=== PATIENT | male | born 1950 ===

== ENCOUNTER 2018-09-08 20:09 | Emergency (ER) | payer MEDICARE, OTHER ==
[2018-09-08] MEDS ORDERED: KETOROLAC 30 MG/ML 1 ML VIAL IM STA (20:40)
[2018-09-08] MEDS ORDERED: DIAZEPAM 5 MG TAB PO STA (20:40)
--- NOTE | 2018-09-08 20:51 | ED ---
General Adult HPI - General Chief complaint: Neck Pain/Injury Stated complaint: Stiff neck Time Seen by Provider: 09/08/18 20:24 Source: patient, RN notes reviewed Mode of arrival: ambulatory Limitations: no limitations - History of Present Illness Initial comments: 68-year-old male with a past medical history of prostate cancer presents to the emergency department for a chief complaint of neck pain. Patient states this started last night while he was eating dinner. He states he notices sharp pain generalized across the back of his neck. Patient states he woke up this morning and was unable to move his neck. Patient states it is stuck twisted somewhat to the right. Patient states it is painful to turn his neck sideways or to look up or down. He denies any fevers. He denies any recent illnesses. He denies any headache associated with this neck pain. Denies any back pain.Patient has no other complaints at this time including shortness of breath, chest pain, abdominal pain, nausea or vomiting, headache, or visual changes. - Related Data Home Medications Medication Instructions Recorded Confirmed Doxazosin Mesylate [Cardura] 8 mg PO BID 09/08/18 09/08/18 Ibuprofen [Motrin Ib] 200 mg PO BID PRN 09/08/18 09/08/18 Previous Rx's Medication Instructions Recorded HYDROcodone/APAP 5-325MG [Java 1 tab PO Q6HR PRN #12 tab 09/09/18 5-325] Allergies Allergy/AdvReac Type Severity Reaction Status Date / Time No Known Allergies Allergy Verified 09/08/18 20:31 Review of Systems ROS Statement: Those systems with pertinent positive or pertinent negative responses have been documented in the HPI. ROS Other: All systems not noted in ROS Statement are negative. Past Medical History Past Medical History: No Reported History, Cancer Additional Past Medical History / Comment(s): prostate ca History of Any Multi-Drug Resistant Organisms: None Reported Past Surgical History: Appendectomy, Orthopedic Surgery Past Psychological History: No Psychological Hx Reported Smoking Status: Former smoker Past Alcohol Use History: None Reported Past Drug Use History: None Reported General Exam Limitations: no limitations General appearance: alert, in no apparent distress Head exam: Present: atraumatic, normocephalic, normal inspection Eye exam: Present: normal appearance, PERRL, EOMI. Absent: scleral icterus, conjunctival injection, periorbital swelling ENT exam: Present: normal exam, normal oropharynx, mucous membranes moist, TM's normal bilaterally, normal external ear exam Neck exam: Present: tenderness (3 minimal generalized tenderness over the posterior neck), other (patients neck held in slight rotation to the right, likely muscle spasm ). Absent: meningismus (Negative Kernig, negative Brudzinski,), full ROM, lymphadenopathy Respiratory exam: Present: normal lung sounds bilaterally. Absent: respiratory distress, wheezes, rales, rhonchi, stridor Cardiovascular Exam: Present: regular rate, normal rhythm, normal heart sounds. Absent: systolic murmur, diastolic murmur, rubs, gallop, clicks Course Vital Signs 09/08/18 09/08/18 20:13 22:42 Temperature 98.2 F 98.0 F Pulse Rate 74 74 Respiratory 22 18 Rate Blood Pressure 173/96 140/88 O2 Sat by Pulse 94 L 96 Oximetry Medical Decision Making - Medical Decision Making 68-year-old male presents to the emergency department for a chief complaint of neck pain. This started while eating dinner yesterday. Patient states the pain is across the back of his neck. States his neck is to the right and it is painful to move his neck from side to side or up to down. Patient states the pain comes and goes like spasms. On exam, patient has mild torticollis to the right noted with muscle spasm. No meningismus. Patient is afebrile. X-ray initially ordered which did show disc space narrowing and spondylosis at C5 to C6 C6 to C7. Patient initially feeling much better after Toradol and Valium given. However after patient went to push her back on spasms started again. Patient was given [address] was ordered after Dr. Oconnor also evaluated the patient. This also shows the narrowing with yoyn-rt-eujo contact in bilateral moderate to severe for aminal stenosis. Patient feeling much better after her feeding given. Patient will be given prescription for Java. Patient is to follow-up with Dr. Ballard outpatient. Patient will return here if he has any worsening symptoms Disposition Clinical Impression: Neck pain, Torticollis Disposition: HOME SELF-CARE Condition: Good Instructions (If sedation given, give patient instructions): Cervical Strain (ED) Additional Instructions: Please take motrin for pain. If pain is severe, take norco. Please follow-up with orthopedics in one to 2 days. Return here to the emergency department if he develops any worsening symptoms. Prescriptions: HYDROcodone/APAP 5-325MG [Java 5-325] 1 tab PO Q6HR PRN #12 tab PRN Reason: Pain Is patient prescribed a controlled substance at d/c from ED?: Yes When asked, does pt state using other controlled substances?: No If prescribed controlled substance>3 days was MAPS reviewed?: Prescribed <3 Days If opioid is for acute pain is fill amount 7 days or less?: Yes If Rx opioid, was Start Talking consent form obtained?: Yes Referrals: Julito Jo MD [Primary Care Provider] - 1-2 days Time of Disposition: 00:22
--- NOTE | 2018-09-08 21:37 | XR ---
EXAMINATION TYPE: XR cervical spine comp DATE OF EXAM: 09/08/2018 COMPARISON: NONE HISTORY: Neck pain TECHNIQUE: 6 views FINDINGS: The cervical vertebra have fairly normal alignment. Disc spaces are slightly narrowed in th e lower cervical spine. Neural foramina appear normal. Atlantoaxial facet joint is normal. There are no cervical ribs. IMPRESSION: Degenerative disc space narrowing and spondylosis at C5-6 C6-7. No fracture.
[2018-09-08] MEDS ORDERED: MORPHINE SULFATE 4 MG/ML SYRINGE IM STA (22:13)
[2018-09-08 22:44] VITALS: RESP 18
--- NOTE | 2018-09-09 00:07 | CT ---
History: ITS.REASON CT Reason: Pain Exam: CT C SPINE Without Contrast Technique more: CTDI is 16.9 mGy and DLP is 542.5 mGy-cm. Technique more: This CT exam was performed using one or more of the following dose reduction techniques: automated exposure control, adjustment of the mA and/or kV according to patient size, and/or use of iterative reconstruction technique. Comparison: None available FINDINGS: No fracture or malalignment. Disc space narrowing and uncovertebral hypertrophic change C5-6 with mild appearing left-sided foraminal stenosis. Disc space narrowing with zkvo-gn-ufob contact and uncovertebral hypertrophic change with bilateral moderate to severe appearing foraminal stenosis. No CT evidence of significant-appearing central stenosis. No prevertebral swelling. Bilateral partial mastoid fluid opacification. Mild mucoperiosteal thickening inferior visualized right maxillary sinus. Apices appear clear. IMPRESSION: No fracture or malalignment. Disc space narrowing and uncovertebral hypertrophic change C5-6 with mild appearing left-sided foraminal stenosis. Disc space narrowing with hdyv-yu-nymq contact and uncovertebral hypertrophic change with bilateral moderate to severe appearing foraminal stenosis. No CT evidence of significant-appearing central stenosis. Bilateral partial mastoid fluid opacification. Mild mucoperiosteal thickening inferior visualized right maxillary sinus.
[2018-09-09 00:43] VITALS: BP 141/92; PULSE 83; TEMP 97.8
== END 2018-09-09 00:43 | disposition home or self-care (01) ==
LOC: EC 20:09
DX: M43.6 Torticollis (principal); M48.02 Spinal stenosis, cervical region; M47.812 Spondylosis without myelopathy or radiculopathy, cervical region; Z87.891 Personal history of nicotine dependence; Z79.899 Other long term (current) drug therapy; Z85.46 Personal history of malignant neoplasm of prostate
CPT/HCPCS: 72050; 72125; 96372; 99284

== ENCOUNTER 2020-08-23 20:51 | Inpatient (IN) | payer MEDICARE ==
[2020-08-23] MEDS ORDERED: ACETAMINOPHEN TAB 325 MG TAB PO STA (21:06)
[2020-08-23 21:35] LABS: Basophils % (A) 0 %; Eosinophils % (A) 0 %; HCT 39.1 % (39.0-53.0); HGB 13.1 gm/dL (13.0-17.5); Lymphocytes # (A) 0.3 k/uL (1.0-4.8); Lymphocytes % (A) 6 %; MCH 29.4 pg (25.0-35.0); MCHC 33.5 g/dL (31.0-37.0); MCV 87.9 fL (80.0-100.0); Mean Platelet Volume 8.3; Monocytes # (A) 0.2 k/uL (0-1.0); Monocytes % (A) 3 %; Neutrophils % (A) 90 %; Platelet Count 183 k/uL (150-450); RBC 4.45 m/uL (4.30-5.90); RDW 13.1 % (11.5-15.5); WBC 5.6 k/uL (3.8-10.6)
[2020-08-23 21:52] LABS: Partial Thromboplastin Time 26.5 sec (22.0-30.0)
[2020-08-23 22:04] LABS: D-Dimer 0.73 mg/L FEU (<0.60)
--- NOTE | 2020-08-23 22:24 | XR ---
EXAMINATION TYPE: XR chest 1V portable DATE OF EXAM: 08/23/2020 COMPARISON: NONE HISTORY: Short of breath TECHNIQUE: Single view FINDINGS: There is some increased mild interstitial density in both lungs. There is no heart failure. Heart appears borderline enlarged. There is no pleural effusion. IMPRESSION: Interstitial mild fibrotic changes. No heart failure.
[2020-08-23 22:33] LABS: ALT 23 U/L (4-49); AST 47 U/L (17-59); African American GFR (CKD) >90 (>60 ml/min/1.73 sqM); Albumin 3.3 g/dL (3.5-5.0); Alkaline Phosphatase 69 U/L (38-126); Anion Gap 11 mmol/L; Blood Urea Nitrogen 21 mg/dL (9-20); C Reactive Protein 81.9 mg/L (<10.0); Calcium 8.2 mg/dL (8.4-10.2); Carbon Dioxide 19 mmol/L (22-30); Chloride 103 mmol/L (98-107); Glucose 123 mg/dL (74-99); LDH 1200 U/L (313-618); Magnesium 1.8 mg/dL (1.6-2.3); Non-African American GFR(CKD) 86 (>60 ml/min/1.73 sqM); Potassium 3.7 mmol/L (3.5-5.1); Sodium 133 mmol/L (137-145); Total Bilirubin 0.8 mg/dL (0.2-1.3); Total Protein 6.6 g/dL (6.3-8.2)
--- NOTE | 2020-08-23 23:07 | ED ---
SOB HPI - General Chief Complaint: Shortness of Breath Stated Complaint: ZOE Time Seen by Provider: 08/23/20 21:04 Source: patient, EMS Mode of arrival: EMS Limitations: no limitations - History of Present Illness Initial Comments: 70-year-old male who states he does not go to her doctor has no endorsed past medical history presenting to the ER today for chief complaint of "I know I have covid" x 2 weeks. Patient states he has had progressive worsening shortness of breath 2 weeks he states he has had cough body aches and changes of taste and smell. Patient states he has had occasional nausea he states that it feels uncomfortable to take a deep breath he denies any sharp pleuritic chest pain denies jaw or arm pain. Patient denies any vomiting or diarrhea. He denies any rashes sore throat or ear pain. Patient upon arrival appears to be short of breath he is on a nonrebreather he was 89% on room air upon EMS arrival. Patient was given 2 DuoNeb treatments as well as 125 of Solu-Medrol prior to arrival in the ER> - Related Data Home Medications Medication Instructions Recorded Confirmed Doxazosin Mesylate [Cardura] 8 mg PO DAILY 09/08/18 08/23/20 Allergies Allergy/AdvReac Type Severity Reaction Status Date / Time No Known Allergies Allergy Verified 08/23/20 22:21 Review of Systems ROS Statement: Those systems with pertinent positive or pertinent negative responses have been documented in the HPI. ROS Other: All systems not noted in ROS Statement are negative. Past Medical History Past Medical History: No Reported History, Cancer Additional Past Medical History / Comment(s): prostate ca History of Any Multi-Drug Resistant Organisms: None Reported Past Surgical History: Appendectomy, Orthopedic Surgery Past Psychological History: No Psychological Hx Reported Smoking Status: Never smoker Past Alcohol Use History: None Reported Past Drug Use History: None Reported General Exam - General Exam Comments Initial Comments: General: The patient is awake and alert, in no distress Eye: +3 mm pupils are equal, round and reactive to light, extra-ocular movements are intact. No nystagmus. There is normal conjunctiva bilaterally. No signs of icterus. Ears, nose, mouth and throat: There are moist mucous membranes and no oral lesions. Neck: The neck is supple, there is no tenderness or JVD. Cardiovascular: There is a regular rate and rhythm. No murmur, rub or gallop is appreciated. Respiratory: Respirations are non-labored, breath sounds are equal. No wheezes, stridor. Rhonchi with scattered rales Gastrointestinal: Soft, non-distended, non-tender abdomen without masses or organomegaly noted. There is no rebound or guarding present. Musculoskeletal: Normal ROM, no tenderness. Strength 5/5. Sensation intact. Radial and DP pulses equal bilaterally 2+. Neurological: A&O x 3. CN II-XII intact, There are no obvious motor or sensory deficits. Coordination appears grossly intact. Speech is normal. Skin: Skin is warm and dry and no rashes or lesions are noted. No LE edema or calf pain. Psychiatric: Cooperative, appropriate mood & affect, normal judgment. Limitations: no limitations Course Vital Signs 08/23/20 08/23/20 21:01 22:14 Temperature 102.9 F H Pulse Rate 99 90 Respiratory 28 H 24 Rate Blood Pressure 154/75 113/68 O2 Sat by Pulse 90 L 97 Oximetry Medical Decision Making - Medical Decision Making hypoxic 70 yo male presenting for cough, dyspnea. covid + with pna, no PE. Patient given decadron. is on non-rebreather will attempt to lower this as tolerated. patient EKG reviewed [facility] attending. patient will be admitted for monitoring, continuous pulse oximetry. Patient agreeable> Dr Burk agreeable to care plan. Amilcar Maria accepted admission fro [facility]. Sharris pulm on consult. - Lab Data Result diagrams: 08/23/20 21:28 08/23/20 21:28 Lab Results 08/23/20 08/23/20 08/23/20 Range/Units 21:28 21:28 21:28 WBC 5.6 (3.8-10.6) k/uL RBC 4.45 (4.30-5.90) m/uL Hgb 13.1 (13.0-17.5) gm/dL Hct 39.1 (39.0-53.0) % MCV 87.9 (80.0-100.0) fL MCH 29.4 (25.0-35.0) pg MCHC 33.5 (31.0-37.0) g/dL RDW 13.1 (11.5-15.5) % Plt Count 183 (150-450) k/uL MPV 8.3 Neutrophils % 90 % Lymphocytes % 6 % Monocytes % 3 % Eosinophils % 0 % Basophils % 0 % Neutrophils # 5.0 (1.3-7.7) k/uL Lymphocytes # 0.3 L (1.0-4.8) k/uL Monocytes # 0.2 (0-1.0) k/uL Eosinophils # 0.0 (0-0.7) k/uL Basophils # 0.0 (0-0.2) k/uL PT 11.0 (9.0-12.0) sec INR 1.0 (<1.2) APTT 26.5 (22.0-30.0) sec D-Dimer 0.73 H (<0.60) mg/L FEU Sodium 133 L (137-145) mmol/L Potassium 3.7 (3.5-5.1) mmol/L Chloride 103 (98-107) mmol/L Carbon Dioxide 19 L (22-30) mmol/L Anion Gap 11 mmol/L BUN 21 H (9-20) mg/dL Creatinine 0.91 (0.66-1.25) mg/dL Est GFR (CKD-EPI)AfAm >90 (>60 ml/min/1.73 sqM) Est GFR (CKD-EPI)NonAf 86 (>60 ml/min/1.73 sqM) Glucose 123 H (74-99) mg/dL Plasma Lactic Acid Deny (0.7-2.0) mmol/L Calcium 8.2 L (8.4-10.2) mg/dL Magnesium 1.8 (1.6-2.3) mg/dL Total Bilirubin 0.8 (0.2-1.3) mg/dL AST 47 (17-59) U/L ALT 23 (4-49) U/L Alkaline Phosphatase 69 (38-126) U/L Lactate Dehydrogenase 1200 H (313-618) U/L C-Reactive Protein 81.9 H (<10.0) mg/L Total Protein 6.6 (6.3-8.2) g/dL Albumin 3.3 L (3.5-5.0) g/dL Coronavirus (PCR) (Not Detectd) 08/23/20 08/23/20 Range/Units 21:28 22:18 WBC (3.8-10.6) k/uL RBC (4.30-5.90) m/uL Hgb (13.0-17.5) gm/dL Hct (39.0-53.0) % MCV (80.0-100.0) fL MCH (25.0-35.0) pg MCHC (31.0-37.0) g/dL RDW (11.5-15.5) % Plt Count (150-450) k/uL MPV Neutrophils % % Lymphocytes % % Monocytes % % Eosinophils % % Basophils % % Neutrophils # (1.3-7.7) k/uL Lymphocytes # (1.0-4.8) k/uL Monocytes # (0-1.0) k/uL Eosinophils # (0-0.7) k/uL Basophils # (0-0.2) k/uL PT (9.0-12.0) sec INR (<1.2) APTT (22.0-30.0) sec D-Dimer (<0.60) mg/L FEU Sodium (137-145) mmol/L Potassium (3.5-5.1) mmol/L Chloride (98-107) mmol/L Carbon Dioxide (22-30) mmol/L Anion Gap mmol/L BUN (9-20) mg/dL Creatinine (0.66-1.25) mg/dL Est GFR (CKD-EPI)AfAm (>60 ml/min/1.73 sqM) Est GFR (CKD-EPI)NonAf (>60 ml/min/1.73 sqM) Glucose (74-99) mg/dL Plasma Lactic Acid Deny 1.7 (0.7-2.0) mmol/L Calcium (8.4-10.2) mg/dL Magnesium (1.6-2.3) mg/dL Total Bilirubin (0.2-1.3) mg/dL AST (17-59) U/L ALT (4-49) U/L Alkaline Phosphatase (38-126) U/L Lactate Dehydrogenase (313-618) U/L C-Reactive Protein (<10.0) mg/L Total Protein (6.3-8.2) g/dL Albumin (3.5-5.0) g/dL Coronavirus (PCR) Detected A (Not Detectd) Disposition Clinical Impression: Dyspnea, Hypoxia, COVID-19, Pneumonia due to COVID-19 virus Disposition: ADMITTED IP TO THIS HOSP Condition: Stable Is patient prescribed a controlled substance at d/c from ED?: No Referrals: None,Stated [Primary Care Provider] - 1-2 days Time of Disposition: 23:25 Decision to Admit Reason: Admit from EC Decision Date: 08/23/20 Decision Time: 23:25
--- NOTE | 2020-08-23 23:21 | CT ---
EXAMINATION TYPE: CT chest angio for PE DATE OF EXAM: 08/23/2020 COMPARISON: None HISTORY: Dyspnea, elevated d-dimer. Pt on 15 L O2, stuggling to breath, not able to follow breathing instructions. CT DLP: 631.8 mGycm Automated exposure control for dose reduction was used. CONTRAST: Performed with IV Contrast, patient injected with 100 mL of Isovue 370. There are 3-D post processed images. There is coarse interstitial and airspace infiltrate in both lungs. There is patchy groundglass inter stitial infiltrate throughout both lungs. There are a few paratracheal lymph nodes that measure up to 1 cm. Thoracic aorta shows no aneurysm or dissection. The ascending aorta measures 3.8 cm. There are no hilar masses. I see no evidence of filling defect in the pulmonary arteries. There are no hilar m asses. There are a few bilateral bronchial lymph nodes measuring up to 1 cm. Thoracic spine is intact. Sternum is intact. IMPRESSION: Pulmonary extensive bilateral infiltrates consistent with pneumonia. No pleural fluid seen to suggest heart failure. No evidence of pulmonary embolism.
[2020-08-23] MEDS ORDERED: DEXAMETHASONE SOD PHOSPHATE 4 MG/ML 1 ML VIAL IV STA (23:23)
[2020-08-23] MEDS ORDERED: NALOXONE 0.4 MG/ML 1 ML VIAL IV PRN (23:23)
[2020-08-23] MEDS ORDERED: ACETAMINOPHEN TAB 325 MG TAB PO PRN (23:25)
[2020-08-24] MEDS: CHOLECALCIFEROL 25 MCG (1000 IU) TABLET PO SCH (08:48)
[2020-08-24] MEDS: ASCORBIC ACID 500 MG TAB PO SCH ×2 (08:48→20:52)
[2020-08-24] MEDS: ZINC SULFATE 220 MG CAP PO SCH (08:48)
[2020-08-24] MEDS: ENOXAPARIN 40 MG/0.4 ML SYRINGE SQ SCH (08:48)
[2020-08-24] MEDS: dexAMETHasone 2 MG TAB PO SCH (08:48)
--- NOTE | 2020-08-24 11:47 | P.CNPUL ---
History of Present Illness Consult date: 08/24/20 Requesting physician: Live Patton Reason for consult: dyspnea, cough, hypoxemia, pneumonia, abnormal CXR/CT Chief complaint: Fever, cough, shortness of breath. History of present illness: 70-year-old male, who does not see a doctor on a regular basis, who presents to the emergency room, via EMS. The patient hasn't felt well for 2-3 weeks at least. He's had progressive shortness of breath, cough, body aches, and changes of taste and smell. He also has occasional nausea, and he feels like it's hard to take a deep breath or when he takes a deep breath, it causes a sharp pain. He denied any vomiting or diarrhea. The patient short of breath on presentation to the emergency room. He was brought there by EMS. His saturations on a nonrebreather mask were only 89%. He did receive some breathing treatments on the way into the emergency room, and also IV Solu-Medrol. Currently, he is on 4 L nasal cannula. He is not receiving IV fluids. At this point, given the length of his symptoms, he is only a candidate for Decadron, vitamin C, vitamin D3, and zinc, and Lovenox. White count is 5.6, hemoglobin 13.1, hematocrit 39.1, and platelet count 183,000. PT 11, INR 1, PTT 26.5, and d-dimer is 0.73. Sodium 133, potassium 3.7, chlorides 103, CO2 19, anion gap 11, BUN 21, creatinine 0.91. LDH is 1200, C-reactive protein 81.9, and his pro-calcitonin level is 0.25. His COVID test by PCR was positive. Chest x-ray shows diffuse interstitial changes. CT angiogram was negative for pulmonary embolism, but did show extensive bilateral infiltrates, consistent with pneumonia. Review of Systems REVIEW OF SYSTEMS: CONSTITUTIONAL: Fever and chills, muscle aches, fatigue. NEUROLOGIC: [ Negative.] HEENT: [ Negative.] CARDIAC: [Negative.] PULMONARY: Shortness of breath, cough, chest congestion, and pleuritic chest pain with deep breathing or coughing. GI: [Negative.] : [Negative.] RHEUMATOLOGIC: [ Negative.] IMMUNOLOGIC: [ Negative.] ENDOCRINE: [Negative. ] DERMATOLOGIC: [Negative.] Past Medical History Past Medical History: No Reported History, Cancer Additional Past Medical History / Comment(s): prostate ca History of Any Multi-Drug Resistant Organisms: None Reported Past Surgical History: Appendectomy, Orthopedic Surgery Past Psychological History: No Psychological Hx Reported Smoking Status: Never smoker Past Alcohol Use History: None Reported Past Drug Use History: None Reported Medications and Allergies Home Medications Medication Instructions Recorded Confirmed Type Doxazosin Mesylate [Cardura] 8 mg PO DAILY 09/08/18 08/23/20 History Allergies Allergy/AdvReac Type Severity Reaction Status Date / Time No Known Allergies Allergy Verified 08/23/20 22:21 Physical Exam Osteopathic Statement: *. No significant issues noted on an osteopathic structural exam other than those noted in the History and Physical/Consult. Vitals: Vital Signs Temp Pulse Resp BP Pulse Ox 08/24/20 10:49 98.6 F 60 22 104/57 93 L 08/24/20 08:41 97 F L 60 20 110/69 93 L 08/24/20 04:00 56 L 22 105/62 95 08/24/20 00:30 100.5 F H 70 22 118/68 93 L 08/23/20 23:35 101.9 F H 80 22 123/76 98 08/23/20 22:14 90 24 113/68 97 08/23/20 21:01 102.9 F H 99 28 H 154/75 90 L Intake and Output 08/23/20 08/24/20 08/24/20 22:59 06:59 14:59 Other: Weight 104.326 kg No acute distress, oriented 3. Currently, patient on 4 L nasal cannula. No audible wheezing, use of accessory muscles, or conversational dyspnea. HEENT examination is grossly unremarkable. Mucous membranes are moist. No oral lesions. Neck supple. Full range of motion. No adenopathy thyromegaly or neck vein distention. Cardiovascular examination reveals regular rhythm rate. S1-S2 normal. No S3 or S4. No discernible murmur noted. Heart sounds are distant. Heart rate 60 bpm. Lungs reveal diffuse bilateral inspiratory and expiratory rhonchi. There are some basilar crackles. Breath sounds equal bilaterally. Abdomen soft bowel sounds are heard. No masses or tenderness. Extremities are intact. No cyanosis clubbing or edema. Skin is without rash or lesion. Neurologic examination is brief but nonfocal. Results - Laboratory Findings CBC and BMP: 08/23/20 21:28 08/23/20 21:28 PT/INR, D-dimer PT 11.0 sec (9.0-12.0) 08/23/20 21:28 INR 1.0 (<1.2) 08/23/20 21:28 D-Dimer 0.73 mg/L FEU (<0.60) H 08/23/20 21:28 Abnormal lab findings: Abnormal Labs 08/23/20 08/23/20 08/23/20 21:28 21:28 21:28 Lymphocytes # 0.3 L D-Dimer 0.73 H Sodium 133 L Carbon Dioxide 19 L BUN 21 H Glucose 123 H Calcium 8.2 L Lactate Dehydrogenase 1200 H C-Reactive Protein 81.9 H Albumin 3.3 L Procalcitonin Coronavirus (PCR) 08/23/20 08/23/20 21:28 22:18 Lymphocytes # D-Dimer Sodium Carbon Dioxide BUN Glucose Calcium Lactate Dehydrogenase C-Reactive Protein Albumin Procalcitonin 0.25 H Coronavirus (PCR) Detected A - Diagnostic Findings Chest x-ray: image reviewed CT scan - chest: image reviewed Assessment and Plan Assessment: Acute hypoxemic respiratory failure secondary to COVID 19 pneumonia. History of prostate cancer. Patient currently does not have a doctor and does not see a doctor on a regular basis. Plan: Plan dated 08/24/2020. The patient's only a candidate for oxygen therapy, Decadron, vitamin C, vitamin D3, zinc, and low molecular weight heparin. The patient is not a candidate for other therapies given the fact that his symptoms have been present for 2-3 weeks. The patient is very poor about seeing a medical doctor on a regular basis. When asked to his family doctor is, he states he does not have one. He apparently has not seen a doctor in years. We will continue to follow. X-rays and labs are reviewed. CAT scan is reviewed. Medications are reviewed. Time with Patient: Greater than 30
--- NOTE | 2020-08-24 13:01 | P.HPIM ---
History of Present Illness 70-year-old the male came in with complains of shortness of breath, body aches and the loss of sense of smell and taste. Denied any nausea vomiting diarrhea patient is bit hyponatremic patient is bit lightheaded as well and patient saturations were low presently on 4 L of oxygen was diagnosed with Covid 19 CT angiogram did not show any PE but infiltrates consistent with Covid. Patient's symptoms started about 2 weeks ago.. Review of Systems REVIEW OF SYSTEMS: CONSTITUTIONAL: No fever, no malaise, no fatigue. HEENT: No recent visual problems or hearing problems. Denied any sore throat. CARDIOVASCULAR: No chest pain, orthopnea, PND, no palpitations, no syncope. PULMONARY: no hemoptysis. GASTROINTESTINAL: No diarrhea, no nausea, no vomiting, no abdominal pain. NEUROLOGICAL: No headaches, no weakness, no numbness. HEMATOLOGICAL: Denies any bleeding or petechiae. GENITOURINARY: Denies any burning micturition, frequency, or urgency. MUSCULOSKELETAL/RHEUMATOLOGICAL: Denies any joint pain, swelling, or any muscle pain. ENDOCRINE: Denies any polyuria or polydipsia. The rest of the 14-point review of systems is negative. Past Medical History Past Medical History: No Reported History, Cancer Additional Past Medical History / Comment(s): prostate ca History of Any Multi-Drug Resistant Organisms: None Reported Past Surgical History: Appendectomy, Orthopedic Surgery Past Psychological History: No Psychological Hx Reported Smoking Status: Never smoker Past Alcohol Use History: None Reported Past Drug Use History: None Reported Medications and Allergies Home Medications Medication Instructions Recorded Confirmed Type Doxazosin Mesylate [Cardura] 8 mg PO DAILY 09/08/18 08/23/20 History Allergies Allergy/AdvReac Type Severity Reaction Status Date / Time No Known Allergies Allergy Verified 08/23/20 22:21 Physical Exam Vitals: Vital Signs Temp Pulse Resp BP Pulse Ox 08/24/20 10:49 98.6 F 60 22 104/57 93 L 08/24/20 08:41 97 F L 60 20 110/69 93 L 08/24/20 04:00 56 L 22 105/62 95 08/24/20 00:30 100.5 F H 70 22 118/68 93 L 08/23/20 23:35 101.9 F H 80 22 123/76 98 08/23/20 22:14 90 24 113/68 97 08/23/20 21:01 102.9 F H 99 28 H 154/75 90 L Intake and Output 08/23/20 08/24/20 08/24/20 22:59 06:59 14:59 Other: Weight 104.326 kg PHYSICAL EXAMINATION: GENERAL: The patient is alert and oriented x3, not in any acute distress. Obese HEENT: Pupils are round and equally reacting to light. EOMI. No scleral icterus. No conjunctival pallor. Normocephalic, atraumatic. No pharyngeal erythema. No thyromegaly. CARDIOVASCULAR: S1 and S2 present. No murmurs, rubs, or gallops. PULMONARY: Chest is clear to auscultation, no wheezing or crackles. ABDOMEN: Soft, nontender, nondistended, normoactive bowel sounds. No palpable organomegaly. MUSCULOSKELETAL: No joint swelling or deformity. EXTREMITIES: No cyanosis, clubbing, or pedal edema. NEUROLOGICAL: Gross neurological examination did not reveal any focal deficits. SKIN: No rashes. Results CBC & Chem 7: 08/23/20 21:28 08/23/20 21:28 Labs: Abnormal Lab Results - Last 24 Hours (Table) 08/23/20 08/23/20 08/23/20 Range/Units 21:28 21:28 21:28 Lymphocytes # 0.3 L (1.0-4.8) k/uL D-Dimer 0.73 H (<0.60) mg/L FEU Sodium 133 L (137-145) mmol/L Carbon Dioxide 19 L (22-30) mmol/L BUN 21 H (9-20) mg/dL Glucose 123 H (74-99) mg/dL Calcium 8.2 L (8.4-10.2) mg/dL Lactate Dehydrogenase 1200 H (313-618) U/L C-Reactive Protein 81.9 H (<10.0) mg/L Albumin 3.3 L (3.5-5.0) g/dL Procalcitonin (0.02-0.09) ng/mL Coronavirus (PCR) (Not Detectd) 08/23/20 08/23/20 Range/Units 21:28 22:18 Lymphocytes # (1.0-4.8) k/uL D-Dimer (<0.60) mg/L FEU Sodium (137-145) mmol/L Carbon Dioxide (22-30) mmol/L BUN (9-20) mg/dL Glucose (74-99) mg/dL Calcium (8.4-10.2) mg/dL Lactate Dehydrogenase (313-618) U/L C-Reactive Protein (<10.0) mg/L Albumin (3.5-5.0) g/dL Procalcitonin 0.25 H (0.02-0.09) ng/mL Coronavirus (PCR) Detected A (Not Detectd) Assessment and Plan Plan: -Acute hypoxic respiratory failure secondary to covid pneumonia. Patient will be continued on Decadron, Covid vitamins. -History of prostate cancer in remission -Obesity GI prophylaxis with Pepcid -DVT prophylaxis Lovenox
[2020-08-24] MEDS: DOXAZOSIN 4 MG TAB PO SCH (13:28)
[2020-08-24] MEDS: SODIUM CHLORIDE 0.9% 1,000 ML IV SCH (20:51)
[2020-08-24] MEDS: FAMOTIDINE 20 MG TAB PO SCH (20:52)
[2020-08-25] MEDS: SODIUM CHLORIDE 0.9% 1,000 ML IV SCH ×2 (00:23→08:54)
[2020-08-25 06:39] LABS: African American GFR (CKD) >90 (>60 ml/min/1.73 sqM); Anion Gap 4 mmol/L; Blood Urea Nitrogen 25 mg/dL (9-20); Calcium 8.1 mg/dL (8.4-10.2); Carbon Dioxide 25 mmol/L (22-30); Chloride 107 mmol/L (98-107); Glucose 131 mg/dL (74-99); Non-African American GFR(CKD) >90 (>60 ml/min/1.73 sqM); Potassium 4.3 mmol/L (3.5-5.1); Sodium 136 mmol/L (137-145)
[2020-08-25] MEDS: CHOLECALCIFEROL 25 MCG (1000 IU) TABLET PO SCH (08:54)
[2020-08-25] MEDS: ZINC SULFATE 220 MG CAP PO SCH (08:54)
[2020-08-25] MEDS: FAMOTIDINE 20 MG TAB PO SCH ×2 (08:54→21:02)
[2020-08-25] MEDS: ENOXAPARIN 40 MG/0.4 ML SYRINGE SQ SCH (08:54)
[2020-08-25] MEDS: dexAMETHasone 2 MG TAB PO SCH (08:54)
[2020-08-25] MEDS: ASCORBIC ACID 500 MG TAB PO SCH ×2 (08:54→21:02)
[2020-08-25] MEDS: DOXAZOSIN 4 MG TAB PO SCH (11:01)
--- NOTE | 2020-08-25 13:11 | XR ---
EXAMINATION TYPE: XR chest 1V portable DATE OF EXAM: 08/25/2020 CLINICAL HISTORY: Difficulty breathing progress study. Known Covid. TECHNIQUE: Single AP portable upright view of the chest is obtained. COMPARISON: Chest x-ray and CT chest from 2 days earlier FINDINGS: Worsening bilateral multifocal opacities. Persistent cardiomegaly. Osseous structures inta ct. IMPRESSION: Worsening bilateral multifocal opacities consistent with covid-19 infection progression
[2020-08-25 13:29] LABS: C Reactive Protein 50.9 mg/L (<10.0)
--- NOTE | 2020-08-25 16:14 | P.PN ---
Subjective Progress Note Date: 08/25/20 70-year-old the male came in with complains of shortness of breath, body aches and the loss of sense of smell and taste. Denied any nausea vomiting diarrhea patient is bit hyponatremic patient is bit lightheaded as well and patient saturations were low presently on 4 L of oxygen was diagnosed with Covid 19 CT angiogram did not show any PE but infiltrates consistent with Covid. Patient's symptoms started about 2 weeks ago.. 08/25/2020 Patient is seen and evaluated and follow-up and currently requiring oxygen via nonrebreather at 15 L. Patient continues to be extremely dyspneic with minimal exertion. Pulmonary is following. Patient is maintained on dexamethasone, Lovenox, and vitamin supplements and will continue. When talking with the patient he denies any worsening shortness of breath. D-dimer slightly improved at 0.64 today. Sodium is also improved at 136 and potassium is 4.3 and current creatinine is 0.8. Lactate dehydrogenase slightly elevated at 1586 and CRP trending down. We'll discontinue IV fluids and repeat labs. Review of systems: Constitutional: No reports of fatigue, fever, or chills Cardiovascular: No reports of chest pain or palpitations Respiratory:reports shortness of breath and cough GI: No reports of nausea, vomiting, or diarrhea : No reports of dysuria or retention Neurovascular: No reports of weakness or numbness All medications have been reviewed Objective - Vital Signs Vital signs: Vital Signs Temp 98.6 F 08/25/20 10:00 Pulse 69 08/25/20 10:00 Resp 20 08/25/20 10:00 BP 118/70 08/25/20 10:00 Pulse Ox 97 08/25/20 10:00 Intake & Output 08/24/20 08/25/20 08/25/20 18:59 06:59 18:59 Output Total 325 Balance -325 Weight 105.6 kg Output: Urine 325 - Exam GENERAL: The patient is alert and oriented x3, not in any acute distress. Obese HEENT: Pupils are round and equally reacting to light. EOMI. No scleral icterus. No conjunctival pallor. Normocephalic, atraumatic. No pharyngeal erythema. No thyromegaly. CARDIOVASCULAR: S1 and S2 present. No murmurs, rubs, or gallops. PULMONARY: Diminished breath sounds bilaterally with some scattered rhonchi noted ABDOMEN: Soft, nontender, nondistended, normoactive bowel sounds. No palpable organomegaly. MUSCULOSKELETAL: No joint swelling or deformity. EXTREMITIES: No cyanosis, clubbing, or pedal edema. NEUROLOGICAL: Gross neurological examination did not reveal any focal deficits. SKIN: No rashes. - Labs CBC & Chem 7: 08/23/20 21:28 08/25/20 06:00 Labs: Abnormal Lab Results - Last 24 Hours (Table) 08/25/20 08/25/20 08/25/20 Range/Units 06:00 13:00 13:00 D-Dimer 0.64 H (<0.60) mg/L FEU Sodium 136 L (137-145) mmol/L BUN 25 H (9-20) mg/dL Glucose 131 H (74-99) mg/dL Calcium 8.1 L (8.4-10.2) mg/dL Lactate Dehydrogenase 1586 H (313-618) U/L C-Reactive Protein 50.9 H (<10.0) mg/L Microbiology - Last 24 Hours (Table) 08/23/20 21:28 Blood Culture - Preliminary Blood No Growth after 24 hours Assessment and Plan Assessment: -Acute hypoxic respiratory failure secondary to covid pneumonia. Patient will be continued on Decadron, Covid vitamins. Currently requiring 15 L nonrebreather discussed with nursing staff about weaning FiO2 as tolerated -History of prostate cancer in remission -Obesity -GI prophylaxis with Pepcid -DVT prophylaxis Lovenox
--- NOTE | 2020-08-25 17:24 | P.PN ---
Subjective Progress Note Date: 08/25/20 Principal diagnosis: CoVID 19 pneumonia 70-year-old male, who does not see a doctor on a regular basis, who presents to the emergency room, via EMS. The patient hasn't felt well for 2-3 weeks at least. He's had progressive shortness of breath, cough, body aches, and changes of taste and smell. He also has occasional nausea, and he feels like it's hard to take a deep breath or when he takes a deep breath, it causes a sharp pain. He denied any vomiting or diarrhea. The patient short of breath on presentation to the emergency room. He was brought there by EMS. His saturations on a nonrebreather mask were only 89%. He did receive some breathing treatments on the way into the emergency room, and also IV Solu-Medrol. Currently, he is on 4 L nasal cannula. He is not receiving IV fluids. At this point, given the length of his symptoms, he is only a candidate for Decadron, vitamin C, vitamin D3, and zinc, and Lovenox. White count is 5.6, hemoglobin 13.1, hematocrit 39.1, and platelet count 183,000. PT 11, INR 1, PTT 26.5, and d-dimer is 0.73. Sodium 133, potassium 3.7, chlorides 103, CO2 19, anion gap 11, BUN 21, creatinine 0.91. LDH is 1200, C-reactive protein 81.9, and his pro-calcitonin level is 0.25. His COVID test by PCR was positive. Chest x-ray shows diffuse interstitial changes. CT angiogram was negative for pulmonary embolism, but did show extensive bilateral infiltrates, consistent with pneumonia. The patient is seen today 08/25/2020 in follow-up on the regular medical floor. He is currently sitting up at the bedside. Awake and alert in no acute distress. He is more short of breath today compared to yesterday. Increased cough and congestion. He has required increased oxygen support up to 15 L high flow nasal cannula and a partial rebreather mask to maintain O2 saturations in the 90s. He's been afebrile. Hemodynamically stable. Chest x-ray reveals worsening bilateral multifocal opacities consistent with CoVID 19 infection progression. D-dimer 0.64. LDH elevated at 1586. C-reactive protein 50.9. Sodium 136. Potassium 4.3. Creatinine 0.8. He remains on Lovenox, dexamethasone, vitamin supplements. Objective - Vital Signs Vital signs: Vital Signs Temp 98.9 F 08/25/20 14:00 Pulse 74 08/25/20 14:00 Resp 22 08/25/20 14:00 BP 118/62 08/25/20 14:00 Pulse Ox 97 08/25/20 14:00 Intake & Output 08/24/20 08/25/20 08/25/20 18:59 06:59 18:59 Intake Total 1200 Output Total 325 Balance -325 1200 Weight 105.6 kg Intake: Intake, IV Titration 1200 Amount Sodium Chloride 0.9% 1, 1200 000 ml @ 100 mls/hr IV . Q10H [facility] Rx#:[id number] Output: Urine 325 - Exam GENERAL EXAM: Alert, very pleasant 70-year-old gentleman, on 15 L high flow nasal cannula with nonrebreather mask, in mild respiratory distress. HEAD: Normocephalic. EYES: Normal reaction of pupils, equal size. NOSE: Clear with pink turbinates. THROAT: No erythema or exudates. NECK: No masses, no JVD. CHEST: No chest wall deformity. LUNGS: Equal air entry with bilateral coarse rhonchi, crackles in the posterior bases. CVS: S1 and S2 normal with no audible murmur, regular rhythm. ABDOMEN: No hepatosplenomegaly, normal bowel sounds, no guarding or rigidity. SPINE: No scoliosis or deformity SKIN: No rashes CENTRAL NERVOUS SYSTEM: No focal deficits, tone is normal in all 4 extremities. EXTREMITIES: There is no peripheral edema. No clubbing, no cyanosis. Per ipheral pulses are intact. - Labs CBC & Chem 7: 08/23/20 21:28 08/25/20 06:00 Labs: Abnormal Lab Results - Last 24 Hours (Table) 08/25/20 08/25/20 08/25/20 Range/Units 06:00 13:00 13:00 D-Dimer 0.64 H (<0.60) mg/L FEU Sodium 136 L (137-145) mmol/L BUN 25 H (9-20) mg/dL Glucose 131 H (74-99) mg/dL Calcium 8.1 L (8.4-10.2) mg/dL Lactate Dehydrogenase 1586 H (313-618) U/L C-Reactive Protein 50.9 H (<10.0) mg/L Microbiology - Last 24 Hours (Table) 08/23/20 21:28 Blood Culture - Preliminary Blood No Growth after 24 hours Assessment and Plan Assessment: 1 Acute hypoxemic respiratory failure secondary to acute CoVID 19 pneumonia, outside the window for Remdesivir 2 Elevated inflammatory markers secondary to above 3 History of prostate cancer Plan: The patient was seen and evaluated by Dr. Santacruz Chest x-ray showing progression of disease Elevated inflammatory markers Patient had significant increase in oxygen requirements We'll add tocilizumab Continue Lovenox, dexamethasone, vitamin supplements Monitors oxygen requirements closely We'll continue to follow and make further recommendations based on his clinical status I, the cosigning physician, performed a history & physical examination of the patient. Lungs sounds with bilateral coarse rhonchi, crackles in the bases.. Maintaining good O2 saturations in the 90s on 15 L high flow nasal cannula with partial rebreather mask. I discussed the assessment and plan of care with my nurse practitioner, Anamika Live. I attest to the above note as dictated by her.
[2020-08-25] MEDS ORDERED: TOCILIZUMAB 400 MG in SODIUM CHLORIDE 0.9% 80 ML IV ONE (18:00)
[2020-08-26] MEDS: ENOXAPARIN 40 MG/0.4 ML SYRINGE SQ SCH (09:18)
[2020-08-26] MEDS: dexAMETHasone 2 MG TAB PO SCH (09:19)
[2020-08-26] MEDS: CHOLECALCIFEROL 25 MCG (1000 IU) TABLET PO SCH (09:19)
[2020-08-26] MEDS: FAMOTIDINE 20 MG TAB PO SCH ×2 (09:19→20:17)
[2020-08-26] MEDS: DOXAZOSIN 4 MG TAB PO SCH (09:19)
[2020-08-26] MEDS: ASCORBIC ACID 500 MG TAB PO SCH ×2 (09:19→20:17)
[2020-08-26] MEDS: ZINC SULFATE 220 MG CAP PO SCH (09:22)
[2020-08-26 11:32] LABS: HCT 38.4 % (39.6-50.0); MCH 29.8 pg (27.0-32.0); MCHC 33.9 g/dL (32.0-37.0); MCV 88.1 fL (80.0-97.0); Platelet Count 293 X 10*3/uL (140-440); RBC 4.36 X 10*6/uL (4.40-5.60); RDW 13.9 % (11.5-14.5); WBC 9.45 X 10*3/uL (4.50-10.00)
[2020-08-26 11:57] LABS: Basophils # (A) 0.01 X 10*3/uL (0.00-0.10); Basophils % (A) 0.1 %; Eosinophils # (A) 0 X 10*3/uL (0.04-0.35); Eosinophils % (A) 0 %; Lymphocytes # (A) 0.46 X 10*3/uL (0.90-5.00); Lymphocytes % (A) 4.9 %; Monocytes # (A) 0.44 X 10*3/uL (0.20-1.00); Monocytes % (A) 4.7 %; Neutrophils # (A) 8.48 X 10*3/uL (1.80-7.70); Neutrophils % (A) 89.7 %
[2020-08-26 12:33] LABS: African American GFR (CKD) 106.4 (60.0-200.0); Anion Gap 6.1 mmol/L (4.00-12.00); BUN/Creat Ratio 31.25 Ratio (12.00-20.00); C Reactive Protein 3.9 mg/dL (0.0-0.8); Calcium 8.2 mg/dL (8.7-10.3); Carbon Dioxide 23.9 mmol/L (21.6-31.8); Non-African American GFR(CKD) 91.8 (60.0-200.0); Potassium 4.5 mmol/L (3.5-5.5)
--- NOTE | 2020-08-26 15:43 | P.PN ---
Subjective Progress Note Date: 08/26/20 Principal diagnosis: CoVID 19 pneumonia 70-year-old male, who does not see a doctor on a regular basis, who presents to the emergency room, via EMS. The patient hasn't felt well for 2-3 weeks at least. He's had progressive shortness of breath, cough, body aches, and changes of taste and smell. He also has occasional nausea, and he feels like it's hard to take a deep breath or when he takes a deep breath, it causes a sharp pain. He denied any vomiting or diarrhea. The patient short of breath on presentation to the emergency room. He was brought there by EMS. His saturations on a nonrebreather mask were only 89%. He did receive some breathing treatments on the way into the emergency room, and also IV Solu-Medrol. Currently, he is on 4 L nasal cannula. He is not receiving IV fluids. At this point, given the length of his symptoms, he is only a candidate for Decadron, vitamin C, vitamin D3, and zinc, and Lovenox. White count is 5.6, hemoglobin 13.1, hematocrit 39.1, and platelet count 183,000. PT 11, INR 1, PTT 26.5, and d-dimer is 0.73. Sodium 133, potassium 3.7, chlorides 103, CO2 19, anion gap 11, BUN 21, creatinine 0.91. LDH is 1200, C-reactive protein 81.9, and his pro-calcitonin level is 0.25. His COVID test by PCR was positive. Chest x-ray shows diffuse interstitial changes. CT angiogram was negative for pulmonary embolism, but did show extensive bilateral infiltrates, consistent with pneumonia. The patient is seen today 08/25/2020 in follow-up on the regular medical floor. He is currently sitting up at the bedside. Awake and alert in no acute distress. He is more short of breath today compared to yesterday. Increased cough and congestion. He has required increased oxygen support up to 15 L high flow nasal cannula and a partial rebreather mask to maintain O2 saturations in the 90s. He's been afebrile. Hemodynamically stable. Chest x-ray reveals worsening bilateral multifocal opacities consistent with CoVID 19 infection progression. D-dimer 0.64. LDH elevated at 1586. C-reactive protein 50.9. Sodium 136. Potassium 4.3. Creatinine 0.8. He remains on Lovenox, dexamethasone, vitamin supplements. The patient is seen today 08/26/2020 in follow-up on the regular medical floor. He is currently sitting up in a chair at the bedside. Awake and alert in no acute distress. He is still requiring partial rebreather mask to maintain O2 saturation in the high 80s low 90s. He is continued with a loose nonproductive cough. He did receive tocilizumab. He remains on Lovenox, dexamethasone, vitamin supplements. White count 9.4. Hemoglobin 13.0. Lymphocytes 0.4. D- dimer 0.80. Sodium 139. Potassium 4.5. Creatinine 0.8. LDH 500. C-reactive protein 3.9. Objective - Vital Signs Vital signs: Vital Signs Temp 97.7 F 08/26/20 08:38 Pulse 79 08/26/20 08:38 Resp 18 08/26/20 05:49 BP 108/58 08/26/20 08:38 Pulse Ox 92 L 08/26/20 08:38 Intake & Output 08/25/20 08/26/20 08/26/20 18:59 06:59 18:59 Intake Total 1200 Output Total 900 Balance 1200 -900 Intake: Intake, IV Titration 1200 Amount Sodium Chloride 0.9% 1, 1200 000 ml @ 100 mls/hr IV . Q10H REPLACED BY [facility] Rx#:[id number] Output: Urine 900 Other: Voiding Method Toilet Toilet - Exam GENERAL EXAM: Alert, very pleasant 70-year-old gentleman, on partial nonrebr eather mask, in mild respiratory distress. HEAD: Normocephalic. EYES: Normal reaction of pupils, equal size. NOSE: Clear with pink turbinates. THROAT: No erythema or exudates. NECK: No masses, no JVD. CHEST: No chest wall deformity. LUNGS: Equal air entry with bilateral coarse rhonchi, crackles in the posterior bases. CVS: S1 and S2 normal with no audible murmur, regular rhythm. ABDOMEN: No hepatosplenomegaly, normal bowel sounds, no guarding or rigidity. SPINE: No scoliosis or deformity SKIN: No rashes CENTRAL NERVOUS SYSTEM: No focal deficits, tone is normal in all 4 extremities. EXTREMITIES: There is no peripheral edema. No clubbing, no cyanosis. Peripheral pulses are intact. - Labs CBC & Chem 7: 08/26/20 07:22 08/26/20 07:22 Labs: Abnormal Lab Results - Last 24 Hours (Table) 08/26/20 08/26/20 08/26/20 Range/Units 07:22 07:22 07:22 RBC 4.36 L (4.40-5.60) X 10*6/uL Hct 38.4 L (39.6-50.0) % Immature Gran # 0.06 H (0.00-0.04) X 10*3/uL Neutrophils # 8.48 H (1.80-7.70) X 10*3/uL Lymphocytes # 0.46 L (0.90-5.00) X 10*3/uL Eosinophils # 0 L (0.04-0.35) X 10*3/uL D-Dimer 0.80 H (<0.60) mg/L FEU BUN/Creatinine Ratio 31.25 H (12.00-20.00) Ratio Glucose 125 H (70-110) mg/dL Calcium 8.2 L (8.7-10.3) mg/dL Lactate Dehydrogenase 500 H (120-246) U/L C-Reactive Protein 3.9 H (0.0-0.8) mg/dL Microbiology - Last 24 Hours (Table) 08/23/20 21:28 Blood Culture - Preliminary Blood No Growth after 48 hours Assessment and Plan Assessment: 1 Acute hypoxemic respiratory failure secondary to acute CoVID 19 pneumonia, outside the window for Remdesivir. Did receive tocilizumab. 2 Elevated inflammatory markers secondary to above 3 History of prostate cancer Plan: The patient was seen and evaluated by Dr. Santacruz He did receive tocilizumab Continue Lovenox, dexamethasone, vitamin supplements Monitors oxygen requirements closely Inflammatory markers improving We'll continue to follow I, the cosigning physician, performed a history & physical examination of the patient. Lungs sounds with bilateral coarse rhonchi, crackles in the bases.. Maintaining good O2 saturations in the 90s on partial nonrebreather mask. I discussed the assessment and plan of care with my nurse practitioner, Anamika Live. I attest to the above note as dictated by her.
--- NOTE | 2020-08-26 16:50 | P.PN ---
Subjective 70-year-old the male came in with complains of shortness of breath, body aches and the loss of sense of smell and taste. Denied any nausea vomiting diarrhea patient is bit hyponatremic patient is bit lightheaded as well and patient saturations were low presently on 4 L of oxygen was diagnosed with Covid 19 CT angiogram did not show any PE but infiltrates consistent with Covid. Patient's symptoms started about 2 weeks ago.. 08/25/2020 Patient is seen and evaluated and follow-up and currently requiring oxygen via nonrebreather at 15 L. Patient continues to be extremely dyspneic with minimal exertion. Pulmonary is following. Patient is maintained on dexamethasone, Lovenox, and vitamin supplements and will continue. When talking with the patient he denies any worsening shortness of breath. D-dimer slightly improved at 0.64 today. Sodium is also improved at 136 and potassium is 4.3 and current creatinine is 0.8. Lactate dehydrogenase slightly elevated at 1586 and CRP trending down. We'll discontinue IV fluids and repeat labs. 08/26/2020 and extend patient still remains on 15 L of oxygen although says is doing much better Review of systems: Constitutional: No reports of fatigue, fever, or chills Cardiovascular: No reports of chest pain or palpitations Respiratory:reports shortness of breath and cough GI: No reports of nausea, vomiting, or diarrhea : No reports of dysuria or retention Neurovascular: No reports of weakness or numbness All medications have been reviewed Objective - Vital Signs Vital signs: Vital Signs Temp 97.7 F 08/26/20 08:38 Pulse 79 08/26/20 08:38 Resp 18 08/26/20 05:49 BP 108/58 08/26/20 08:38 Pulse Ox 92 L 08/26/20 08:38 Intake & Output 08/25/20 08/26/20 08/26/20 18:59 06:59 18:59 Intake Total 1200 Output Total 900 Balance 1200 -900 Intake: Intake, IV Titration 1200 Amount Sodium Chloride 0.9% 1, 1200 000 ml @ 100 mls/hr IV . Q10H [facility] Rx#:[id number] Output: Urine 900 Other: Voiding Method Toilet Toilet - Exam PHYSICAL EXAMINATION: GENERAL: The patient is alert and oriented x3, not in any acute distress. Well developed, well nourished. HEENT: Pupils are round and equally reacting to light. EOMI. No scleral icterus. No conjunctival pallor. Normocephalic, atraumatic. No pharyngeal erythema. No thyromegaly. CARDIOVASCULAR: S1 and S2 present. No murmurs, rubs, or gallops. PULMONARY: Chest is clear to auscultation, no wheezing or crackles. ABDOMEN: Soft, nontender, nondistended, normoactive bowel sounds. No palpable organomegaly. MUSCULOSKELETAL: No joint swelling or deformity. EXTREMITIES: No cyanosis, clubbing, or pedal edema. NEUROLOGICAL: Gross neurological examination did not reveal any focal deficits. SKIN: No rashes. - Labs CBC & Chem 7: 08/26/20 07:22 08/26/20 07:22 Labs: Abnormal Lab Results - Last 24 Hours (Table) 08/26/20 08/26/20 08/26/20 Range/Units 07:22 07:22 07:22 RBC 4.36 L (4.40-5.60) X 10*6/uL Hct 38.4 L (39.6-50.0) % Immature Gran # 0.06 H (0.00-0.04) X 10*3/uL Neutrophils # 8.48 H (1.80-7.70) X 10*3/uL Lymphocytes # 0.46 L (0.90-5.00) X 10*3/uL Eosinophils # 0 L (0.04-0.35) X 10*3/uL D-Dimer 0.80 H (<0.60) mg/L FEU BUN/Creatinine Ratio 31.25 H (12.00-20.00) Ratio Glucose 125 H (70-110) mg/dL Calcium 8.2 L (8.7-10.3) mg/dL Lactate Dehydrogenase 500 H (120-246) U/L C-Reactive Protein 3.9 H (0.0-0.8) mg/dL Microbiology - Last 24 Hours (Table) 08/23/20 21:28 Blood Culture - Preliminary Blood No Growth after 48 hours Assessment and Plan Plan: -Acute hypoxic respiratory failure secondary to covid pneumonia. Patient will be continued on Decadron, Covid vitamins. Currently requiring 15 L nonrebreather discussed with nursing staff about weaning FiO2 as tolerated -History of prostate cancer in remission -Obesity -GI prophylaxis with Pepcid -DVT prophylaxis Lovenox
[2020-08-26 23:54] LABS: Ferritin 1618.4 ng/mL (22.0-322.0)
[2020-08-27 07:30] LABS: C Reactive Protein 26.1 mg/L (<10.0)
[2020-08-27] MEDS: ENOXAPARIN 40 MG/0.4 ML SYRINGE SQ SCH (08:17)
[2020-08-27] MEDS: dexAMETHasone 2 MG TAB PO SCH (08:17)
[2020-08-27] MEDS: ASCORBIC ACID 500 MG TAB PO SCH ×2 (08:17→20:21)
[2020-08-27] MEDS: DOXAZOSIN 4 MG TAB PO SCH (08:17)
[2020-08-27] MEDS: ZINC SULFATE 220 MG CAP PO SCH (08:17)
[2020-08-27] MEDS: FAMOTIDINE 20 MG TAB PO SCH ×2 (08:17→20:21)
[2020-08-27] MEDS: CHOLECALCIFEROL 25 MCG (1000 IU) TABLET PO SCH (08:18)
--- NOTE | 2020-08-27 10:56 | P.PN ---
Subjective 70-year-old the male came in with complains of shortness of breath, body aches and the loss of sense of smell and taste. Denied any nausea vomiting diarrhea patient is bit hyponatremic patient is bit lightheaded as well and patient saturations were low presently on 4 L of oxygen was diagnosed with Covid [address] angiogram did not show any PE but infiltrates consistent with Covid. Patient's symptoms started about 2 weeks ago.. 08/25/2020 Patient is seen and evaluated and follow-up and currently requiring oxygen via nonrebreather at 15 L. Patient continues to be extremely dyspneic with minimal exertion. Pulmonary is following. Patient is maintained on dexamethasone, Lovenox, and vitamin supplements and will continue. When talking with the patient he denies any worsening shortness of breath. D-dimer slightly improved at 0.64 today. Sodium is also improved at 136 and potassium is 4.3 and current creatinine is 0.8. Lactate dehydrogenase slightly elevated at 1586 and CRP trending down. We'll discontinue IV fluids and repeat labs. 08/26/2020 and extend patient still remains on 15 L of oxygen although says is doing much better 08/27/2020 Patient remains in 15 L of oxygen patient's LDH is 1242 compared to 500 yesterday C-reactive protein is still high at 26 improved since admission. Review of systems: Constitutional: No reports of fatigue, fever, or chills Cardiovascular: No reports of chest pain or palpitations Respiratory:reports shortness of breath and cough GI: No reports of nausea, vomiting, or diarrhea : No reports of dysuria or retention Neurovascular: No reports of weakness or numbness All medications have been reviewed Objective - Vital Signs Vital signs: Vital Signs Temp 97.5 F L 08/27/20 09:15 Pulse 62 08/27/20 09:15 Resp 18 08/27/20 09:15 BP 121/64 08/27/20 09:15 Pulse Ox 90 L 08/27/20 09:15 Intake & Output 08/26/20 08/27/20 08/27/20 18:59 06:59 18:59 Intake Total 1620 Balance 1620 Intake: Oral 1620 Other: Voiding Method Toilet Toilet Toilet # Voids 2 # Bowel Movements 0 - Exam PHYSICAL EXAMINATION: GENERAL: The patient is alert and oriented x3, not in any acute distress. Well developed, well nourished. HEENT: Pupils are round and equally reacting to light. EOMI. No scleral icterus. No conjunctival pallor. Normocephalic, atraumatic. No pharyngeal erythema. No thyromegaly. CARDIOVASCULAR: S1 and S2 present. No murmurs, rubs, or gallops. PULMONARY: Chest is clear to auscultation, no wheezing or crackles. ABDOMEN: Soft, nontender, nondistended, normoactive bowel sounds. No palpable organomegaly. MUSCULOSKELETAL: No joint swelling or deformity. EXTREMITIES: No cyanosis, clubbing, or pedal edema. NEUROLOGICAL: Gross neurological examination did not reveal any focal deficits. SKIN: No rashes. - Labs CBC & Chem 7: 08/26/20 07:22 08/26/20 07:22 Labs: Abnormal Lab Results - Last 24 Hours (Table) 08/23/20 08/26/20 08/26/20 Range/Units 21:28 07:22 07:22 RBC 4.36 L (4.40-5.60) X 10*6/uL Hct 38.4 L (39.6-50.0) % Immature Gran # 0.06 H (0.00-0.04) X 10*3/uL Neutrophils # 8.48 H (1.80-7.70) X 10*3/uL Lymphocytes # 0.46 L (0.90-5.00) X 10*3/uL Eosinophils # 0 L (0.04-0.35) X 10*3/uL D-Dimer (<0.60) mg/L FEU BUN/Creatinine Ratio 31.25 H (12.00-20.00) Ratio Glucose 125 H (70-110) mg/dL Calcium 8.2 L (8.7-10.3) mg/dL Ferritin 1618.4 H (22.0-322.0) ng/mL Lactate Dehydrogenase 500 H (120-246) U/L C-Reactive Protein 3.9 H (0.0-0.8) mg/dL 08/27/20 08/27/20 Range/Units 06:30 06:30 RBC (4.40-5.60) X 10*6/uL Hct (39.6-50.0) % Immature Gran # (0.00-0.04) X 10*3/uL Neutrophils # (1.80-7.70) X 10*3/uL Lymphocytes # (0.90-5.00) X 10*3/uL Eosinophils # (0.04-0.35) X 10*3/uL D-Dimer 1.19 H (<0.60) mg/L FEU BUN/Creatinine Ratio (12.00-20.00) Ratio Glucose (70-110) mg/dL Calcium (8.7-10.3) mg/dL Ferritin (22.0-322.0) ng/mL Lactate Dehydrogenase 1242 H (120-246) U/L C-Reactive Protein 26.1 H (0.0-0.8) mg/dL Microbiology - Last 24 Hours (Table) 08/23/20 21:28 Blood Culture - Preliminary Blood No Growth after 72 hours Assessment and Plan Plan: -Acute hypoxic respiratory failure secondary to covid pneumonia. Patient will be continued on Decadron, Covid vitamins. Currently requiring 15 L nonrebreather discussed with nursing staff about weaning FiO2 as tolerated -History of prostate cancer in remission -Obesity -GI prophylaxis with Pepcid -DVT prophylaxis Lovenox
--- NOTE | 2020-08-27 16:01 | P.PN ---
Subjective Progress Note Date: 08/27/20 Principal diagnosis: COVID 19 pneumonia. Shortness of breath. The patient is seen today 08/25/2020 in follow-up on the regular medical floor. He is currently sitting up at the bedside. Awake and alert in no acute distress. He is more short of breath today compared to yesterday. Increased cough and congestion. He has required increased oxygen support up to 15 L high flow nasal cannula and a partial rebreather mask to maintain O2 saturations in the 90s. He's been afebrile. Hemodynamically stable. Chest x-ray reveals worsening bilateral multifocal opacities consistent with CoVID 19 infection progression. D-dimer 0.64. LDH elevated at 1586. C-reactive protein 50.9. Sodium 136. Potassium 4.3. Creatinine 0.8. He remains on Lovenox, dexamethasone, vitamin supplements. The patient is seen today 08/26/2020 in follow-up on the regular medical floor. He is currently sitting up in a chair at the bedside. Awake and alert in no acute distress. He is still requiring partial rebreather mask to maintain O2 saturation in the high 80s low 90s. He is continued with a loose nonproductive cough. He did receive tocilizumab. He remains on Lovenox, dexamethasone, vitamin supplements. White count 9.4. Hemoglobin 13.0. Lymphocytes 0.4. D- dimer 0.80. Sodium 139. Potassium 4.5. Creatinine 0.8. LDH 500. C-reactive protein 3.9. Progress note dated 08/27/2020. 70-year-old male, who is again seen on the general medical floor. He is in room 472. The patient states that he's feeling a bit better today. The patient did receive usual medications including TOCI. Currently, the patient's on a 50% Venturi mask. Saturations are between 90 and 92%. He states that his breathing is improved. He does have a bit of a cough, which is mostly nonproductive. He denies any fever or chills. He denies any chest pain. He is afebrile. Temperature 97.4. Blood pressure is 120/71. Labs today include a d-dimer which is 1.19. LDH is 1242, and C-reactive protein is 26.1. Objective - Vital Signs Vital signs: Vital Signs Temp 97.4 F L 08/27/20 13:54 Pulse 55 L 08/27/20 13:54 Resp 17 08/27/20 13:54 BP 120/71 08/27/20 13:54 Pulse Ox 92 L 08/27/20 13:54 Intake & Output 08/26/20 08/27/20 08/27/20 18:59 06:59 18:59 Intake Total 1620 Balance 1620 Intake: Oral 1620 Other: Voiding Method Toilet Toilet Toilet # Voids 2 # Bowel Movements 0 - Exam No acute distress, oriented 3. The patient's using a 50% Venturi mask at this time. No conversational dyspnea. HEENT examination is grossly unremarkable. Mucous membranes are moist. No oral lesions. Neck supple. Full range of motion. No adenopathy thyromegaly or neck vein distention. Cardiovascular examination reveals regular rhythm rate. S1-S2 normal. No S3 or S4. No discernible murmur noted. Heart rate 55 bpm. Lungs reveal scattered bilateral rhonchi and crackles. Breath sounds are equal. There are no wheezes. Pulmonary examination is unchanged. Abdomen soft bowel sounds are heard. No masses or tenderness. Extremities are intact. No cyanosis clubbing or edema. Skin is without rash or lesion. Neurologic examination is brief but nonfocal. - Labs CBC & Chem 7: 08/26/20 07:22 08/26/20 07:22 Labs: Abnormal Lab Results - Last 24 Hours (Table) 08/23/20 08/27/20 08/27/20 Range/Units 21:28 06:30 06:30 D-Dimer 1.19 H (<0.60) mg/L FEU Ferritin 1618.4 H (22.0-322.0) ng/mL Lactate Dehydrogenase 1242 H (313-618) U/L C-Reactive Protein 26.1 H (<10.0) mg/L Microbiology - Last 24 Hours (Table) 08/23/20 21:28 Blood Culture - Preliminary Blood No Growth after 72 hours Assessment and Plan Assessment: Acute hypoxemic respiratory failure secondary to COVID 19 pneumonia. Status post TOCI. History of prostate cancer. Patient currently does not have a doctor and does not see a doctor on a regular basis. Plan: Plan dated 08/27/2020. The patient seemed to be doing a lot better. He has been weaned down to 50% Venturi mask. He remains on Decadron, vitamin C, vitamin D3, zinc, and low molecular weight heparin. He did receive TOCI. His oxygen requirements have come down. He is clinically feeling better. X-rays, labs, medications are all reviewed. Both he and his are in the hospital. We will continue to follow make recommendations were appropriate. Time with Patient: Less than 30
--- NOTE | 2020-08-28 07:32 | XR ---
EXAMINATION TYPE: XR chest 1V portable DATE OF EXAM: 08/28/2020 HISTORY: Shortness of breath. COMPARISON: 08/25/20 TECHNIQUE: Single view of the chest is submitted. FINDINGS: Demonstrated are scattered senescent parenchymal change. Peripheral airspace infiltrates seen bilaterally demonstrate interval improvement. The heart is stable. Hilar and mediastinal structures are within normal limits. Degenerative changes are seen of the dorsal spine. IMPRESSION: 1. Peripheral airspace infiltrates seen bilaterally demonstrate interval improvement.
[2020-08-28] MEDS: ENOXAPARIN 40 MG/0.4 ML SYRINGE SQ SCH (08:39)
[2020-08-28] MEDS: dexAMETHasone 2 MG TAB PO SCH (08:39)
[2020-08-28] MEDS: FAMOTIDINE 20 MG TAB PO SCH ×2 (08:40→19:23)
[2020-08-28] MEDS: CHOLECALCIFEROL 25 MCG (1000 IU) TABLET PO SCH (08:40)
[2020-08-28] MEDS: ZINC SULFATE 220 MG CAP PO SCH (08:40)
[2020-08-28] MEDS: ASCORBIC ACID 500 MG TAB PO SCH ×2 (08:40→19:23)
[2020-08-28] MEDS: DOXAZOSIN 4 MG TAB PO SCH (08:40)
--- NOTE | 2020-08-28 13:09 | P.PN ---
Subjective Progress Note Date: 08/28/20 COVID 19 pneumonia. Shortness of breath. The patient is seen today 08/25/2020 in follow-up on the regular medical floor. He is currently sitting up at the bedside. Awake and alert in no acute distress. He is more short of breath today compared to yesterday. Increased cough and congestion. He has required increased oxygen support up to 15 L high flow nasal cannula and a partial rebreather mask to maintain O2 saturations in the 90s. He's been afebrile. Hemodynamically stable. Chest x-ray reveals worsening bilateral multifocal opacities consistent with CoVID 19 infection progression. D-dimer 0.64. LDH elevated at 1586. C-reactive protein 50.9. Sodium 136. Potassium 4.3. Creatinine 0.8. He remains on Lovenox, dexamethasone, vitamin supplements. The patient is seen today 08/26/2020 in follow-up on the regular medical floor. He is currently sitting up in a chair at the bedside. Awake and alert in no acute distress. He is still requiring partial rebreather mask to maintain O2 saturation in the high 80s low 90s. He is continued with a loose nonproductive cough. He did receive tocilizumab. He remains on Lovenox, dexamethasone, vitamin supplements. White count 9.4. Hemoglobin 13.0. Lymphocytes 0.4. D- dimer 0.80. Sodium 139. Potassium 4.5. Creatinine 0.8. LDH 500. C-reactive protein 3.9. Progress note dated 08/27/2020. 70-year-old male, who is again seen on the general medical floor. He is in room 472. The patient states that he's feeling a bit better today. The patient did receive usual medications including TOCI. Currently, the patient's on a 50% Deny turi mask. Saturations are between 90 and 92%. He states that his breathing is improved. He does have a bit of a cough, which is mostly nonproductive. He denies any fever or chills. He denies any chest pain. He is afebrile. Temperature 97.4. Blood pressure is 120/71. Labs today include a d-dimer which is 1.19. LDH is 1242, and C-reactive protein is 26.1. On 08/28/2020 the patient is being seen for a follow-up, and the patient is an acute hypoxic respiratory failure secondary to Covid 19 related pneumonia. The patient received a combination of Decadron, multivitamins and Tocilizumab, and the patient has been weaned down to 50% Venturi mask. The patient is afebrile. No cervical respiratory distress. Bilateral multifocal pulmonary opacities consistent with Covid 19 related pneumonia and this is based on the chest x-rays was on 08/25/2020. Inflammatory markers showed a rise of the LDH of 1242 from yesterday with a CRP of 26. The patient remains on Decadron 6 mg by mouth da artie. The patient is also on Lovenox 40 mg subcu for DVT prophylaxis. Clinically the patient is improving. He is currently on a 40% Ventimask. His chest x-rays also showing significant improvement in the perihilar pulmonary infiltrates described earlier than this is based on today's chest x-ray. Inflammatory markers have not been done today. He is coughing some mucus. His pro-calcitonin level at the time of admission was 0.25. He is on no antibiotics for now. Objective - Vital Signs Vital signs: Vital Signs Temp 97.5 F L 08/28/20 10:04 Pulse 65 08/28/20 10:04 Resp 18 08/28/20 10:04 BP 126/81 08/28/20 10:04 Pulse Ox 91 L 08/28/20 10:04 Intake & Output 08/27/20 08/28/20 08/28/20 18:59 06:59 18:59 Output Total 500 Balance -500 Output: Urine 500 Other: Voiding Method Toilet Toilet Toilet # Voids 2 # Bowel Movements 1 - Exam No acute distress, oriented 3. The patient's using a 50% Venturi mask at this time. No conversational dyspnea. HEENT examination is grossly unremarkable. Mucous membranes are moist. No oral lesions. Neck supple. Full range of motion. No adenopathy thyromegaly or neck vein distention. Cardiovascular examination reveals regular rhythm rate. S1-S2 normal. No S3 or S4. No discernible murmur noted. Heart rate 55 bpm. Lungs reveal scattered bilateral rhonchi and crackles. Breath sounds are equal. There are no wheezes. Pulmonary examination is unchanged. Abdomen soft bowel sounds are heard. No masses or tenderness. Extremities are intact. No cyanosis clubbing or edema. Skin is without rash or lesion. Neurologic examination is brief but nonfocal. - Labs CBC & Chem 7: 08/26/20 07:22 08/26/20 07:22 Labs: Abnormal Lab Results - Last 24 Hours (Table) 08/28/20 Range/Units 05:36 D-Dimer 2.45 H (<0.60) mg/L FEU Microbiology - Last 24 Hours (Table) 08/23/20 21:28 Blood Culture - Preliminary Blood No Growth after 96 hours Assessment and Plan Plan: 1 Acute hypoxemic respiratory failure secondary to acute CoVID 19 pneumonia, outside the window for Remdesivir. Did receive tocilizumab, the patient is currently on Decadron for severe hypoxic respiratory failure and currently is in a 50% Ventimask. The patient is able to maintain a pulse ox above 90%. Last chest x-ray from 08/25/2020 showed progression of bilateral pulmonary infiltrates. X-ray from today shows marked improvement in the pulmonary infiltrates that were noted earlier especially the ones in the perihilar area and the lower lobe. 2 Elevated inflammatory markers secondary to above, LDH level remains elevated, erythematous and markers were not measured from today. The numbers from yesterday was noted. I noted fluctuation in the LDH level. 3 History of prostate cancer Plan Check sputum Gram stain and culture, and the pro-calcitonin level was low Repeat chest x-ray in the morning The patient has been weaned down to 40% Ventimask Titrate FiO2 as tolerated and maintain a saturation above 90% Continue Lovenox, dexamethasone, vitamin supplements Monitors oxygen requirements closely Inflammatory markers improving We'll continue to follow
[2020-08-28 13:19] LABS: C Reactive Protein 1.3 mg/dL (0.0-0.8)
--- NOTE | 2020-08-28 16:18 | P.PN ---
Subjective Progress Note Date: 08/28/20 70-year-old the male came in with complains of shortness of breath, body aches and the loss of sense of smell and taste. Denied any nausea vomiting diarrhea patient is bit hyponatremic patient is bit lightheaded as well and patient saturations were low presently on 4 L of oxygen was diagnosed with Covid 19 CT angiogram did not show any PE but infiltrates consistent with Covid. Patient's symptoms started about 2 weeks ago.. 08/25/2020 Patient is seen and evaluated and follow-up and currently requiring oxygen via nonrebreather at 15 L. Patient continues to be extremely dyspneic with minimal exertion. Pulmonary is following. Patient is maintained on dexamethasone, Lovenox, and vitamin supplements and will continue. When talking with the patient he denies any worsening shortness of breath. D-dimer slightly improved at 0.64 today. Sodium is also improved at 136 and potassium is 4.3 and current creatinine is 0.8. Lactate dehydrogenase slightly elevated at 1586 and CRP trending down. We'll discontinue IV fluids and repeat labs. 08/26/2020 patient still remains on 15 L of oxygen although says is doing much better 08/27/2020 Patient remains in 15 L of oxygen patient's LDH is 1242 compared to 500 yesterday C-reactive protein is still high at 26 improved since admission. 08/28/2020 Patient is seen this morning continues to be on venti-mask and continues to be dyspneic with minimal exertion. D-dimer continues to go up and is currently 2.45. Pulmonary following. Lactate dehydrogenase trending down and 498 from 1242 yesterday and CRP is down at 1.3 compared to 26.1 yesterday. Patient remains afebrile. Chest x-ray shows continued peripheral airspace infiltrates bilaterally and demonstrates interval improvement from previous. Will repeat a.m. chest x-ray. Review of systems: Constitutional: No reports of fatigue, fever, or chills Cardiovascular: No reports of chest pain or palpitations Respiratory:reports shortness of breath and cough GI: No reports of nausea, vomiting, or diarrhea : No reports of dysuria or retention Neurovascular: No reports of weakness or numbness All medications have been reviewed Objective - Vital Signs Vital signs: Vital Signs Temp 97.5 F L 08/28/20 10:04 Pulse 65 08/28/20 10:04 Resp 18 08/28/20 10:04 BP 126/81 08/28/20 10:04 Pulse Ox 91 L 08/28/20 10:04 Intake & Output 08/27/20 08/28/20 08/28/20 18:59 06:59 18:59 Output Total 500 Balance -500 Output: Urine 500 Other: Voiding Method Toilet Toilet Toilet # Voids 2 # Bowel Movements 1 - Exam GENERAL: The patient is alert and oriented x3, not in any acute distress. Obese HEENT: Pupils are round and equally reacting to light. EOMI. No scleral icterus. No conjunctival pallor. Normocephalic, atraumatic. No pharyngeal erythema. No thyromegaly. CARDIOVASCULAR: S1 and S2 present. No murmurs, rubs, or gallops. PULMONARY: Diminished breath sounds bilaterally with some scattered rhonchi noted ABDOMEN: Soft, nontender, nondistended, normoactive bowel sounds. No palpable organomegaly. MUSCULOSKELETAL: No joint swelling or deformity. EXTREMITIES: No cyanosis, clubbing, or pedal edema. NEUROLOGICAL: Gross neurological examination did not reveal any focal deficits. SKIN: No rashes. - Labs CBC & Chem 7: 08/26/20 07:22 08/26/20 07:22 Labs: Abnormal Lab Results - Last 24 Hours (Table) 08/28/20 Range/Units 05:36 D-Dimer 2.45 H (<0.60) mg/L FEU Microbiology - Last 24 Hours (Table) 08/23/20 21:28 Blood Culture - Preliminary Blood No Growth after 96 hours Assessment and Plan Assessment: -Acute hypoxic respiratory failure secondary to covid pneumonia. Patient will be continued on Decadron, Covid vitamins. Currently on venti-mask discussed with nursing staff about weaning FiO2 as tolerated -History of prostate cancer in remission -Obesity -GI prophylaxis with Pepcid -DVT prophylaxis Lovenox Plan: Continue with current medications. Continue to wean FiO2 as tolerated. Patient is presently on a Venti-mask and repeat chest x-ray today shows some improvement. Will repeat a.m. chest x-ray. D-dimer is trending up along with inflammatory markers slowly trending down. Pulmonary following. Will repeat inflammatory markers along with a.m. labs and continue to monitor closely. Further recommendations to follow depending on the clinical course of the patient. Prognosis is guarded.
[2020-08-29] MEDS: ENOXAPARIN 40 MG/0.4 ML SYRINGE SQ SCH (08:22)
[2020-08-29] MEDS: ASCORBIC ACID 500 MG TAB PO SCH ×2 (08:23→19:40)
[2020-08-29] MEDS: DOXAZOSIN 4 MG TAB PO SCH (08:23)
[2020-08-29] MEDS: CHOLECALCIFEROL 25 MCG (1000 IU) TABLET PO SCH (08:23)
[2020-08-29] MEDS: dexAMETHasone 2 MG TAB PO SCH (08:23)
[2020-08-29] MEDS: FAMOTIDINE 20 MG TAB PO SCH ×2 (08:23→19:40)
[2020-08-29] MEDS: ZINC SULFATE 220 MG CAP PO SCH (08:23)
--- NOTE | 2020-08-29 09:49 | XR ---
EXAMINATION TYPE: XR chest 1V portable DATE OF EXAM: 08/29/2020 COMPARISON: Chest x-ray 08/28/2020 HISTORY: Covid, shortness of breath TECHNIQUE: Single frontal view of the chest is obtained. FINDINGS: A lateral airspace disease persists. Cardiac mediastinal silhouette shows a similar appear ance. No pneumothorax or pleural effusion. There are overlying leads. IMPRESSION: Findings consistent with pneumonia
[2020-08-29 11:46] LABS: HCT 39.1 % (39.6-50.0); MCH 29.3 pg (27.0-32.0); MCHC 33.2 g/dL (32.0-37.0); MCV 88.1 fL (80.0-97.0); Mean Platelet Volume 11.6 fL (9.5-12.2); Platelet Count 356 X 10*3/uL (140-440); RBC 4.44 X 10*6/uL (4.40-5.60); RDW 13.4 % (11.5-14.5); WBC 11.56 X 10*3/uL (4.50-10.00)
[2020-08-29 12:11] LABS: African American GFR (CKD) 106.4 (60.0-200.0); Anion Gap 9.6 mmol/L (4.00-12.00); BUN/Creat Ratio 27.5 Ratio (12.00-20.00); Calcium 8.4 mg/dL (8.7-10.3); Carbon Dioxide 23.4 mmol/L (21.6-31.8); Non-African American GFR(CKD) 91.8 (60.0-200.0); Potassium 4.6 mmol/L (3.5-5.5)
--- NOTE | 2020-08-29 13:09 | P.PN ---
Subjective Progress Note Date: 08/29/20 The patient is seen today 08/25/2020 in follow-up on the regular medical floor. He is currently sitting up at the bedside. Awake and alert in no acute distress. He is more short of breath today compared to yesterday. Increased cough and congestion. He has required increased oxygen support up to 15 L high flow nasal cannula and a partial rebreather mask to maintain O2 saturations in the 90s. He's been afebrile. Hemodynamically stable. Chest x-ray reveals worsening bilateral multifocal opacities consistent with CoVID 19 infection progression. D-dimer 0.64. LDH elevated at 1586. C-reactive protein 50.9. Sodium 136. Potassium 4.3. Creatinine 0.8. He remains on Lovenox, dexamethasone, vitamin supplements. The patient is seen today 08/26/2020 in follow-up on the regular medical floor. He is currently sitting up in a chair at the bedside. Awake and alert in no acute distress. He is still requiring partial rebreather mask to maintain O2 saturation in the high 80s low 90s. He is continued with a loose nonproductive cough. He did receive tocilizumab. He remains on Lovenox, dexamethasone, vitamin supplements. White count 9.4. Hemoglobin 13.0. Lymphocytes 0.4. D- dimer 0.80. Sodium 139. Potassium 4.5. Creatinine 0.8. LDH 500. C-reactive protein 3.9. Progress note dated 08/27/2020. 70-year-old male, who is again seen on the general medical floor. He is in room 472. The patient states that he's feeling a bit better today. The patient did receive usual medications including TOCI. Currently, the patient's on a 50% Venturi mask. Saturations are between 90 and 92%. He states that his breathing is improved. He does have a bit of a cough, which is mostly nonproductive. He denies any fever or chills. He denies any chest pain. He is afebrile. Temperature 97.4. Blood pressure is 120/71. Labs today include a d-dimer which is 1.19. LDH is 1242, and C-reactive protein is 26.1. On 08/28/2020 the patient is being seen for a follow-up, and the patient is an acute hypoxic respiratory failure secondary to Covid 19 related pneumonia. The patient received a combination of Decadron, multivitamins and Tocilizumab, and the patient has been weaned down to 50% Venturi mask. The patient is afebrile. No cervical respiratory distress. Bilateral multifocal pulmonary opacities consistent with Covid 19 related pneumonia and this is based on the chest x-rays was on 08/25/2020. Inflammatory markers showed a rise of the LDH of 1242 from yesterday with a CRP of 26. The patient remains on Decadron 6 mg by mouth daily. The patient is also on Lovenox 40 mg subcu for DVT prophylaxis. Clinically the patient is improving. He is currently on a 40% Ventimask. His chest x-rays also showing significant improvement in the perihilar pulmonary infiltrates described earlier than this is based on today's chest x-ray. Inflammatory markers have not been done today. He is coughing some mucus. His pro-calcitonin level at the time of admission was 0.25. He is on no antibiotics for now. On 08/29/2020 the patient is being seen in follow-up regarding Covid 19 related pneumonia with respiratory failure. The patient remains on a 50% Venturi mask. Unfortunately is now much progress. Was attempted to wean down his FiO2 yesterday and he fell because of desaturation. He received a combination of Decadron, and Toci . The patient currently remains on Decadron 6 mg by mouth daily. Is on Lovenox 40 mg by mouth daily. His blood work and inflammatory mar kers show a d-dimer up to 3.86, is elevated from yesterday was 498 with a CRP of 1.3. Rest of the blood work and electrolytes are all within normal limits. They, the patient is feeling better and he seems to be less short of breath. We'll try again to switch him to a nasal cannula. Objective - Vital Signs Vital signs: Vital Signs Temp 97.4 F L 08/29/20 10:00 Pulse 60 08/29/20 10:00 Resp 19 08/29/20 10:00 BP 112/71 08/29/20 10:00 Pulse Ox 90 L 08/29/20 10:00 Intake & Output 08/28/20 08/29/20 08/29/20 18:59 06:59 18:59 Other: Voiding Method Toilet Toilet # Voids 2 1 - Exam No acute distress, oriented 3. The patient's using a 50% Venturi mask at this time. No conversational dyspnea. HEENT examination is grossly unremarkable. Mucous membranes are moist. No oral lesions. Neck supple. Full range of motion. No adenopathy thyromegaly or neck vein distention. Cardiovascular examination reveals regular rhythm rate. S1-S2 normal. No S3 or S4. No discernible murmur noted. Heart rate 55 bpm. Lungs reveal scattered bilateral rhonchi and crackles. Breath sounds are equal. There are no wheezes. Pulmonary examination is unchanged. Abdomen soft bowel sounds are heard. No masses or tenderness. Extremities are intact. No cyanosis clubbing or edema. Skin is without rash or lesion. Neurologic examination is brief but nonfocal. - Labs CBC & Chem 7: 08/29/20 06:38 08/29/20 06:38 Labs: Abnormal Lab Results - Last 24 Hours (Table) 08/28/20 08/29/20 08/29/20 Range/Units 05:36 06:38 06:38 WBC 11.56 H (4.50-10.00) X 10*3/uL Hct 39.1 L (39.6-50.0) % Absolute Nucleated RBC 0.02 H (0.00-0.00) X 10*3/uL NRBC/100 WBC Diff 0.2 H (0.0-0.0) /100 WBCS D-Dimer 3.86 H (<0.60) mg/L FEU BUN/Creatinine Ratio (12.00-20.00) Ratio Calcium (8.7-10.3) mg/dL Lactate Dehydrogenase 498 H (120-246) U/L C-Reactive Protein 1.3 H (0.0-0.8) mg/dL 08/29/20 Range/Units 06:38 WBC (4.50-10.00) X 10*3/uL Hct (39.6-50.0) % Absolute Nucleated RBC (0.00-0.00) X 10*3/uL NRBC/100 WBC Diff (0.0-0.0) /100 WBCS D-Dimer (<0.60) mg/L FEU BUN/Creatinine Ratio 27.50 H (12.00-20.00) Ratio Calcium 8.4 L (8.7-10.3) mg/dL Lactate Dehydrogenase (120-246) U/L C-Reactive Protein (0.0-0.8) mg/dL Microbiology - Last 24 Hours (Table) 08/23/20 21:28 Blood Culture - Preliminary Blood No Growth after 120 hours Assessment and Plan Plan: 1 Acute hypoxemic respiratory failure secondary to acute CoVID 19 pneumonia, outside the window for Remdesivir. Did receive tocilizumab, the patient is currently on Decadron for severe hypoxic respiratory failure and currently is in a 50% Ventimask. The patient is able to maintain a pulse ox above 90%. Last chest x-ray from 08/25/2020 showed progression of bilateral pulmonary infiltrates. X-ray from today shows marked improvement in the pulmonary infiltrates that were noted earlier especially the ones in the perihilar area and the lower lobe. 2 Elevated inflammatory markers secondary to above, LDH level remains elevated, erythematous and markers were not measured from today. The numbers from yesterday was noted. I noted fluctuation in the LDH level. 3 History of prostate cancer Plan Check sputum Gram stain and culture and the results are still pending for now, and the pro-calcitonin level was low Repeat chest x-ray in the morning and repeat the inflammatory markers in the morning Try high flow nasal cannula again Titrate FiO2 as tolerated and maintain a saturation above 90% Continue Lovenox, dexamethasone, vitamin supplements Monitors oxygen requirements closely Inflammatory markers improving We'll continue to follow
[2020-08-29 13:22] LABS: Basophils # (M) 0 X 10*3/uL (0.00-0.10); Eosinophils # (M) 0.12 X 10*3/uL (0.04-0.35); Lymphocytes # (M) 0.35 X 10*3/uL (0.90-5.00); Metamyelocytes % 1 % (0-0); Monocytes # (M) 0.23 X 10*3/uL (0.20-1.00); Myelocytes % 3 % (0-0); Neutrophils % (M) 90 %
--- NOTE | 2020-08-29 13:30 | P.PN ---
Subjective Progress Note Date: 08/29/20 70-year-old the male came in with complains of shortness of breath, body aches and the loss of sense of smell and taste. Denied any nausea vomiting diarrhea patient is bit hyponatremic patient is bit lightheaded as well and patient saturations were low presently on 4 L of oxygen was diagnosed with Covid [address] angiogram did not show any PE but infiltrates consistent with Covid. Patient's symptoms started about 2 weeks ago.. 08/25/2020 Patient is seen and evaluated and follow-up and currently requiring oxygen via nonrebreather at 15 L. Patient continues to be extremely dyspneic with minimal exertion. Pulmonary is following. Patient is maintained on dexamethasone, Lovenox, and vitamin supplements and will continue. When talking with the patient he denies any worsening shortness of breath. D-dimer slightly improved at 0.64 today. Sodium is also improved at 136 and potassium is 4.3 and current creatinine is 0.8. Lactate dehydrogenase slightly elevated at 1586 and CRP trending down. We'll discontinue IV fluids and repeat labs. 08/26/2020 patient still remains on 15 L of oxygen although says is doing much better 08/27/2020 Patient remains in 15 L of oxygen patient's LDH is 1242 compared to 500 yesterday C-reactive protein is still high at 26 improved since admission. 08/28/2020 Patient is seen this morning continues to be on venti-mask and continues to be dyspneic with minimal exertion. D-dimer continues to go up and is currently 2.45. Pulmonary following. Lactate dehydrogenase trending down and 498 from 1242 yesterday and CRP is down at 1.3 compared to 26.1 yesterday. Patient remains afebrile. Chest x-ray shows continued peripheral airspace infiltrates bilaterally and demonstrates interval improvement from previous. Will repeat a.m. chest x-ray. 08/29/2020 Patient is seen and evaluated in follow-up this morning continues to be on a Ventimask and states he had some difficulty with increased shortness of breath with minimal exertion this morning although states he feels a little better since then. Pulmonary is following. Discussed with nursing staff and patient about weaning FiO2 as tolerated and will attempt nasal cannula again. Chest x- ray today shows bilateral airspace disease persists with no pneumothorax or pleural effusion noted and consistent with pneumonia. A sputum culture was sent for analysis and pending. Patient is afebrile. Blood count slightly elevated at 11.56 and hemoglobin is stable at 13.0. D-dimer continues to elevate and is currently 3.86. BMP within normal limits with a sodium of 135, potassium is 4.6, current creatinine is 0.8. Will continue to monitor closely and instructed the patient increase activity as tolerated and will repeat a.m. labs along with inflammatory markers. Patient is continued on Lovenox along with dexamethasone and vitamin C and D and zinc supplements. Review of systems: Constitutional: No reports of fatigue, fever, or chills Cardiovascular: No reports of chest pain or palpitations Respiratory:reports reports continued shortness of breath and cough with phlegm production GI: No reports of nausea, vomiting, or diarrhea : No reports of dysuria or retention Neurovascular: No reports of weakness or numbness All medications have been reviewed Objective - Vital Signs Vital signs: Vital Signs Temp 97.4 F L 08/29/20 10:00 Pulse 60 08/29/20 10:00 Resp 19 08/29/20 10:00 BP 112/71 08/29/20 10:00 Pulse Ox 90 L 08/29/20 10:00 Intake & Output 08/28/20 08/29/20 08/29/20 18:59 06:59 18:59 Other: Voiding Method Toilet Toilet # Voids 2 1 - Exam GENERAL: The patient is alert and oriented x3, not in any acute distress. Obese HEENT: Pupils are round and equally reacting to light. EOMI. No scleral icterus. No conjunctival pallor. Normocephalic, atraumatic. No pharyngeal erythema. No thyromegaly. CARDIOVASCULAR: S1 and S2 present. No murmurs, rubs, or gallops. PULMONARY: Diminished breath sounds bilaterally with some scattered rhonchi noted ABDOMEN: Soft, nontender, nondistended, normoactive bowel sounds. No palpable organomegaly. MUSCULOSKELETAL: No joint swelling or deformity. EXTREMITIES: No cyanosis, clubbing, or pedal edema. NEUROLOGICAL: Gross neurological examination did not reveal any focal deficits. SKIN: No rashes. - Labs CBC & Chem 7: 08/29/20 06:38 08/29/20 06:38 Labs: Abnormal Lab Results - Last 24 Hours (Table) 08/28/20 08/29/20 08/29/20 Range/Units 05:36 06:38 06:38 WBC 11.56 H (4.50-10.00) X 10*3/uL Hct 39.1 L (39.6-50.0) % Absolute Nucleated RBC 0.02 H (0.00-0.00) X 10*3/uL NRBC/100 WBC Diff 0.2 H (0.0-0.0) /100 WBCS D-Dimer 3.86 H (<0.60) mg/L FEU BUN/Creatinine Ratio (12.00-20.00) Ratio Calcium (8.7-10.3) mg/dL Lactate Dehydrogenase 498 H (120-246) U/L C-Reactive Protein 1.3 H (0.0-0.8) mg/dL 08/29/20 Range/Units 06:38 WBC (4.50-10.00) X 10*3/uL Hct (39.6-50.0) % Absolute Nucleated RBC (0.00-0.00) X 10*3/uL NRBC/100 WBC Diff (0.0-0.0) /100 WBCS D-Dimer (<0.60) mg/L FEU BUN/Creatinine Ratio 27.50 H (12.00-20.00) Ratio Calcium 8.4 L (8.7-10.3) mg/dL Lactate Dehydrogenase (120-246) U/L C-Reactive Protein (0.0-0.8) mg/dL Microbiology - Last 24 Hours (Table) 08/23/20 21:28 Blood Culture - Preliminary Blood No Growth after 120 hours Assessment and Plan Assessment: -Acute hypoxic respiratory failure secondary to covid pneumonia. Patient will be continued on Decadron, Lovenox, zinc, and vitamin supplementation. Currently on venti-mask discussed with nursing staff about weaning FiO2 as tolerated. We'll attempt nasal cannula again today. -History of prostate cancer in remission -Obesity -GI prophylaxis with Pepcid -DVT prophylaxis Lovenox Plan: Continue with current medications. Continue to wean FiO2 as tolerated. Patient is presently on a Venti-mask and repeat chest x-ray today shows continued pneum onia. Sputum culture sent and pending. Will repeat a.m. chest x-ray. D-dimer is trending up along with inflammatory markers slowly trending down. Pulmonary following. Will repeat inflammatory markers along with a.m. labs and continue to monitor closely. Discussed with the patient along with nursing staff about weaning FiO2 and increasing activity and sitting up in the chair out of the bed. Further recommendations to follow depending on the clinical course of the patient. Prognosis is guarded.
[2020-08-29 14:55] VITALS: BMI 34.3
[2020-08-29] MEDS: MAGNESIUM HYDROXIDE 2,400 MG/10 ML CUP PO PRN (18:06)
[2020-08-30] MEDS: ZINC SULFATE 220 MG CAP PO SCH (07:14)
[2020-08-30] MEDS: dexAMETHasone 2 MG TAB PO SCH (07:14)
[2020-08-30] MEDS: CHOLECALCIFEROL 25 MCG (1000 IU) TABLET PO SCH (07:15)
[2020-08-30] MEDS: FAMOTIDINE 20 MG TAB PO SCH ×2 (07:15→19:51)
[2020-08-30] MEDS: ASCORBIC ACID 500 MG TAB PO SCH ×2 (07:15→19:51)
[2020-08-30] MEDS: DOXAZOSIN 4 MG TAB PO SCH (07:17)
[2020-08-30] MEDS: ENOXAPARIN 40 MG/0.4 ML SYRINGE SQ SCH (07:17)
[2020-08-30 09:39] LABS: C Reactive Protein 0.4 mg/dL (0.0-0.8)
--- NOTE | 2020-08-30 12:32 | P.PN ---
Subjective Progress Note Date: 08/30/20 70-year-old the male came in with complains of shortness of breath, body aches and the loss of sense of smell and taste. Denied any nausea vomiting diarrhea patient is bit hyponatremic patient is bit lightheaded as well and patient saturations were low presently on 4 L of oxygen was diagnosed with Covid [address] angiogram did not show any PE but infiltrates consistent with Covid. Patient's symptoms started about 2 weeks ago.. 08/25/2020 Patient is seen and evaluated and follow-up and currently requiring oxygen via nonrebreather at 15 L. Patient continues to be extremely dyspneic with minimal exertion. Pulmonary is following. Patient is maintained on dexamethasone, Lovenox, and vitamin supplements and will continue. When talking with the patient he denies any worsening shortness of breath. D-dimer slightly improved at 0.64 today. Sodium is also improved at 136 and potassium is 4.3 and current creatinine is 0.8. Lactate dehydrogenase slightly elevated at 1586 and CRP trending down. We'll discontinue IV fluids and repeat labs. 08/26/2020 patient still remains on 15 L of oxygen although says is doing much better 08/27/2020 Patient remains in 15 L of oxygen patient's LDH is 1242 compared to 500 yesterday C-reactive protein is still high at 26 improved since admission. 08/28/2020 Patient is seen this morning continues to be on venti-mask and continues to be dyspneic with minimal exertion. D-dimer continues to go up and is currently 2.45. Pulmonary following. Lactate dehydrogenase trending down and 498 from 1242 yesterday and CRP is down at 1.3 compared to 26.1 yesterday. Patient remains afebrile. Chest x-ray shows continued peripheral airspace infiltrates bilaterally and demonstrates interval improvement from previous. Will repeat a.m. chest x-ray. 08/29/2020 Patient is seen and evaluated in follow-up this morning continues to be on a Ventimask and states he had some difficulty with increased shortness of breath with minimal exertion this morning although states he feels a little better since then. Pulmonary is following. Discussed with nursing staff and patient about weaning FiO2 as tolerated and will attempt nasal cannula again. Chest x- ray today shows bilateral airspace disease persists with no pneumothorax or pleural effusion noted and consistent with pneumonia. A sputum culture was sent for analysis and pending. Patient is afebrile. Blood count slightly elevated at 11.56 and hemoglobin is stable at 13.0. D-dimer continues to elevate and is currently 3.86. BMP within normal limits with a sodium of 135, potassium is 4.6, current creatinine is 0.8. Will continue to monitor closely and instructed the patient increase activity as tolerated and will repeat a.m. labs along with inflammatory markers. Patient is continued on Lovenox along with dexamethasone and vitamin C and D and zinc supplements. 08/30/2020 Patient is seen this morning with no acute overnight issues. Patient is currently maintained on 5 L of oxygen via nasal cannula and nursing staff working on titrating as tolerated. Patient was 90% on 5 L via nasal cannula. Patient states he's feeling much better today and once again encouraged him to increase activity and sit up in the chair more often and continue with incentive spirometer which will be ordered. Shirin is following and patient is maintained on dexamethasone along with Lovenox and vitamin and zinc supplements and will continue. D-dimer continues to be elevated and is currently 5.64, lactate deh ydrogenase slightly up at 521 and CRP is normal at 0.4. Sputum culture received and results pending. Will continue to monitor closely. Review of systems: Constitutional: No reports of fatigue, fever, or chills Cardiovascular: No reports of chest pain or palpitations Respiratory:reports reports continued shortness of breath and cough with increased phlegm production GI: No reports of nausea, vomiting, or diarrhea : No reports of dysuria or retention Neurovascular: No reports of weakness or numbness All medications have been reviewed Objective - Vital Signs Vital signs: Vital Signs Temp 97.7 F 08/30/20 05:50 Pulse 57 L 08/30/20 05:50 Resp 19 08/30/20 05:50 BP 122/81 08/30/20 05:50 Pulse Ox 91 L 08/30/20 05:50 Intake & Output 08/29/20 08/30/20 08/30/20 18:59 06:59 18:59 Intake Total 600 Balance 600 Weight 105.6 kg Intake: Oral 600 Other: Voiding Method Toilet # Voids 4 0 # Bowel Movements 1 - Exam GENERAL: The patient is alert and oriented x3, not in any acute distress. Obese HEENT: Pupils are round and equally reacting to light. EOMI. No scleral icterus. No conjunctival pallor. Normocephalic, atraumatic. No pharyngeal erythema. No thyromegaly. CARDIOVASCULAR: S1 and S2 present. No murmurs, rubs, or gallops. PULMONARY: Diminished breath sounds bilaterally with some scattered rhonchi noted ABDOMEN: Soft, nontender, nondistended, normoactive bowel sounds. No palpable organomegaly. MUSCULOSKELETAL: No joint swelling or deformity. EXTREMITIES: No cyanosis, clubbing, or pedal edema. NEUROLOGICAL: Gross neurological examination did not reveal any focal deficits. SKIN: No rashes. - Labs CBC & Chem 7: 08/29/20 06:38 08/29/20 06:38 Labs: Abnormal Lab Results - Last 24 Hours (Table) 08/29/20 08/29/20 08/30/20 Range/Units 06:38 06:38 06:15 WBC 11.56 H (4.50-10.00) X 10*3/uL Hct 39.1 L (39.6-50.0) % Absolute Nucleated RBC 0.02 H (0.00-0.00) X 10*3/uL Metamyelocytes % 1 H (0-0) % Myelocytes % 3 H (0-0) % Neutrophils # (Manual) 10.40 H (2.00-8.90) X 10*3/uL Lymphocytes # (Manual) 0.35 L (0.90-5.00) X 10*3/uL NRBC/100 WBC Diff 0.2 H (0.0-0.0) /100 WBCS D-Dimer 5.64 H (<0.60) mg/L FEU BUN/Creatinine Ratio 27.50 H (12.00-20.00) Ratio Calcium 8.4 L (8.7-10.3) mg/dL Microbiology - Last 24 Hours (Table) 08/29/20 11:00 Gram Stain - Preliminary Sputum Sputum Culture - Preliminary 08/23/20 21:28 Blood Culture - Final Blood No Growth after 144 hours Assessment and Plan Assessment: -Acute hypoxic respiratory failure secondary to covid pneumonia. Patient will be continued on Decadron, Lovenox, zinc, and vitamin supplementation. Currently on 6 L via nasal cannula and discussed with nursing staff about weaning FiO2 as tolerated. Currently on 5 L at 90% oxygen saturation -History of prostate cancer in remission -Obesity -GI prophylaxis with Pepcid -DVT prophylaxis Lovenox Plan: Continue with current medications. Continue to wean FiO2 as tolerated. Patient is presently on nasal cannula at 5-6 L. Sputum culture sent. Will repeat a.m. chest x-ray. D-dimer is trending up along with inflammatory markers slowly trending down. Pulmonary following. Discussed with the patient along with nursing staff about weaning FiO2 and increasing activity and sitting up in the chair out of the bed. Further recommendations to follow depending on the clinical course of the patient. Patient may require home oxygen secondary to Covid 19 pneumonia upon discharge. Prognosis is guarded.
--- NOTE | 2020-08-30 15:24 | P.PN ---
Subjective Progress Note Date: 08/30/20 The patient is seen today 08/25/2020 in follow-up on the regular medical floor. He is currently sitting up at the bedside. Awake and alert in no acute distress. He is more short of breath today compared to yesterday. Increased cough and congestion. He has required increased oxygen support up to 15 L high flow nasal cannula and a partial rebreather mask to maintain O2 saturations in the 90s. He's been afebrile. Hemodynamically stable. Chest x-ray reveals worsening bilateral multifocal opacities consistent with CoVID 19 infection progression. D-dimer 0.64. LDH elevated at 1586. C-reactive protein 50.9. Sodium 136. Potassium 4.3. Creatinine 0.8. He remains on Lovenox, dexamethasone, vitamin supplements. The patient is seen today 08/26/2020 in follow-up on the regular medical floor. He is currently sitting up in a chair at the bedside. Awake and alert in no acute distress. He is still requiring partial rebreather mask to maintain O2 saturation in the high 80s low 90s. He is continued with a loose nonproductive cough. He did receive tocilizumab. He remains on Lovenox, dexamethasone, vitamin supplements. White count 9.4. Hemoglobin 13.0. Lymphocytes 0.4. D- dimer 0.80. Sodium 139. Potassium 4.5. Creatinine 0.8. LDH 500. C-reactive protein 3.9. Progress note dated 08/27/2020. 70-year-old male, who is again seen on the general medical floor. He is in room 472. The patient states that he's feeling a bit better today. The patient did receive usual medications including TOCI. Currently, the patient's on a 50% Venturi mask. Saturations are between 90 and 92%. He states that his breathing is improved. He does have a bit of a cough, which is mostly nonproductive. He denies any fever or chills. He denies any chest pain. He is afebrile. Temperature 97.4. Blood pressure is 120/71. Labs today include a d-dimer which is 1.19. LDH is 1242, and C-reactive protein is 26.1. On 08/28/2020 the patient is being seen for a follow-up, and the patient is an acute hypoxic respiratory failure secondary to Covid 19 related pneumonia. The patient received a combination of Decadron, multivitamins and Tocilizumab, and the patient has been weaned down to 50% Venturi mask. The patient is afebrile. No cervical respiratory distress. Bilateral multifocal pulmonary opacities consistent with Covid 19 related pneumonia and this is based on the chest x-rays was on 08/25/2020. Inflammatory markers showed a rise of the LDH of 1242 from yesterday with a CRP of 26. The patient remains on Decadron 6 mg by mouth daily. The patient is also on Lovenox 40 mg subcu for DVT prophylaxis. Clinically the patient is improving. He is currently on a 40% Ventimask. His chest x-rays also showing significant improvement in the perihilar pulmonary infiltrates described earlier than this is based on today's chest x-ray. Inflammatory markers have not been done today. He is coughing some mucus. His pro-calcitonin level at the time of admission was 0.25. He is on no antibiotics for now. On 08/29/2020 the patient is being seen in follow-up regarding Covid 19 related pneumonia with respiratory failure. The patient remains on a 50% Venturi mask. Unfortunately is now much progress. Was attempted to wean down his FiO2 yesterday and he fell because of desaturation. He received a combination of Decadron, and Toci . The patient currently remains on Decadron 6 mg by mouth daily. Is on Lovenox 40 mg by mouth daily. His blood work and inflammatory mar kers show a d-dimer up to 3.86, is elevated from yesterday was 498 with a CRP of 1.3. Rest of the blood work and electrolytes are all within normal limits. They, the patient is feeling better and he seems to be less short of breath. We'll try again to switch him to a nasal cannula. On 08/30/2020 and seeing the patient for a follow-up. The patient is currently feeling better and he is feeling less short of breath. He has been taken off the Venturi mask and he was placed on 5 L about 2 by nasal cannula. No significant chest pain. No cough or sputum production.'s of blood work, the patient's d-dimer is up to 5.64, his LDH level is down to 521 and his CRP is down to 0.4. The patient is currently on Decadron 6 mg by mouth daily. He is also on Lovenox 40 mg subcutaneous daily basis. Objective - Vital Signs Vital signs: Vital Signs Temp 97.4 F L 08/30/20 10:00 Pulse 81 08/30/20 10:00 Resp 22 08/30/20 10:00 BP 121/71 08/30/20 10:00 Pulse Ox 90 L 08/30/20 10:00 Intake & Output 08/29/20 08/30/20 08/30/20 18:59 06:59 18:59 Intake Total 600 Balance 600 Weight 105.6 kg Intake: Oral 600 Other: Voiding Method Toilet Toilet # Voids 4 0 # Bowel Movements 1 - Exam No acute distress, oriented 3. The patient's using a 5liters of oxygen by nasal cannula. No conversational dyspnea. HEENT examination is grossly unremarkable. Mucous membranes are moist. No oral lesions. Neck supple. Full range of motion. No adenopathy thyromegaly or neck vein distention. Cardiovascular examination reveals regular rhythm rate. S1-S2 normal. No S3 or S4. No discernible murmur noted. Heart rate 55 bpm. Lungs reveal scattered bilateral rhonchi and crackles. Breath sounds are equal. There are no wheezes. Pulmonary examination is unchanged. Abdomen soft bowel sounds are heard. No masses or tenderness. Extremities are intact. No cyanosis clubbing or edema. Skin is without rash or lesion. Neurologic examination is brief but nonfocal. - Labs CBC & Chem 7: 08/29/20 06:38 08/29/20 06:38 Labs: Abnormal Lab Results - Last 24 Hours (Table) 08/30/20 08/30/20 Range/Units 06:15 06:15 D-Dimer 5.64 H (<0.60) mg/L FEU Lactate Dehydrogenase 521 H (120-246) U/L Microbiology - Last 24 Hours (Table) 08/29/20 11:00 Gram Stain - Preliminary Sputum Sputum Culture - Preliminary 08/23/20 21:28 Blood Culture - Final Blood No Growth after 144 hours Assessment and Plan Plan: 1 Acute hypoxemic respiratory failure secondary to acute CoVID 19 pneumonia, outside the window for Remdesivir. Did receive tocilizumab, the patient is currently on Decadron for severe hypoxic respiratory failure and currently is in a 5 is of oxygen.. The patient is able to maintain a pulse ox above 90%. Likely, the patient is feeling better. He remains on Decadron. His inflammatory markers including LDH and CRP have been declining. D-dimer is high at and it's up to 8. 2 Elevated inflammatory markers secondary to above, 3 History of prostate cancer Plan Continue with Decadron 6 mg on a daily basis Change to Lovenox dose of 50 mg subcu every 12 hours lung that the patient developed a rise in the d-dimer Titrate FiO2 as tolerated and maintain a saturation above 90% She has been weaned down to 5 L about 2 by nasal cannula Monitors oxygen requirements closely Inflammatory markers improving We'll continue to follow Will repeat chest x-ray in a.m.
[2020-08-30] MEDS: ENOXAPARIN 60 MG/0.6 ML SYRINGE SQ SCH (19:51)
[2020-08-30] MEDS: MAGNESIUM HYDROXIDE 2,400 MG/10 ML CUP PO PRN (19:51)
--- NOTE | 2020-08-31 07:20 | XR ---
EXAMINATION TYPE: XR chest 1V portable DATE OF EXAM: 08/31/2020 HISTORY: Shortness of breath. COMPARISON: 08/29/2020 TECHNIQUE: Single view of the chest is submitted. FINDINGS: Demonstrated are scattered senescent parenchymal change. There is persistent scattered patchy and interstitial infiltrates throughout both lung logan without significant change. The heart is stable. Hilar and mediastinal structures are within normal limits. Degenerative changes are seen of the dorsal spine. IMPRESSION: 1. Stable chest.
[2020-08-31] MEDS: ENOXAPARIN 60 MG/0.6 ML SYRINGE SQ SCH ×2 (09:42→20:14)
[2020-08-31] MEDS: DOXAZOSIN 4 MG TAB PO SCH (09:42)
[2020-08-31] MEDS: ZINC SULFATE 220 MG CAP PO SCH (09:42)
[2020-08-31] MEDS: CHOLECALCIFEROL 25 MCG (1000 IU) TABLET PO SCH (09:42)
[2020-08-31] MEDS: dexAMETHasone 2 MG TAB PO SCH (09:42)
[2020-08-31] MEDS: ASCORBIC ACID 500 MG TAB PO SCH ×2 (09:42→20:14)
[2020-08-31] MEDS: FAMOTIDINE 20 MG TAB PO SCH ×2 (09:42→20:14)
[2020-08-31 12:37] LABS: African American GFR (CKD) >90 (>60 ml/min/1.73 sqM); Anion Gap 5 mmol/L; Blood Urea Nitrogen 28 mg/dL (9-20); C Reactive Protein 6.6 mg/L (<10.0); Calcium 8.8 mg/dL (8.4-10.2); Carbon Dioxide 26 mmol/L (22-30); Chloride 100 mmol/L (98-107); Glucose 95 mg/dL (74-99); LDH 1519 U/L (313-618); Non-African American GFR(CKD) >90 (>60 ml/min/1.73 sqM); Potassium 4.5 mmol/L (3.5-5.1); Sodium 131 mmol/L (137-145)
[2020-08-31 13:28] LABS: HCT 43.8 % (39.0-53.0); HGB 14.3 gm/dL (13.0-17.5); MCH 29.3 pg (25.0-35.0); MCHC 32.7 g/dL (31.0-37.0); MCV 89.6 fL (80.0-100.0); Mean Platelet Volume 8.4; Platelet Count 347 k/uL (150-450); RBC 4.89 m/uL (4.30-5.90)
[2020-08-31 13:48] LABS: Band Neutrophils % 5 %; Lymphocytes # (M) 1.08 k/uL (1.0-4.8); Metamyelocytes # (M) 0.72 k/uL (0); Metamyelocytes % 4 %; Monocytes # (M) 1.08 k/uL (0-1.0); Myelocytes # (M) 0.72 k/uL (0); Myelocytes % 4 %; Neutrophils % (M) 77 %; Nucleated Red Blood Cells 0 /100 WBC (0-0); Poikilocytosis (M) Present; Total Cells Counted 200
[2020-08-31] MEDS ORDERED: FUROSEMIDE 10 MG/ML 4 ML VIAL IV STA (14:35)
--- NOTE | 2020-08-31 14:36 | P.PN ---
Subjective Progress Note Date: 08/31/20 The patient is seen today 08/25/2020 in follow-up on the regular medical floor. He is currently sitting up at the bedside. Awake and alert in no acute distress. He is more short of breath today compared to yesterday. Increased cough and congestion. He has required increased oxygen support up to 15 L high flow nasal cannula and a partial rebreather mask to maintain O2 saturations in the 90s. He's been afebrile. Hemodynamically stable. Chest x-ray reveals worsening bilateral multifocal opacities consistent with CoVID 19 infection progression. D-dimer 0.64. LDH elevated at 1586. C-reactive protein 50.9. Sodium 136. Potassium 4.3. Creatinine 0.8. He remains on Lovenox, dexamethasone, vitamin supplements. The patient is seen today 08/26/2020 in follow-up on the regular medical floor. He is currently sitting up in a chair at the bedside. Awake and alert in no acute distress. He is still requiring partial rebreather mask to maintain O2 saturation in the high 80s low 90s. He is continued with a loose nonproductive cough. He did receive tocilizumab. He remains on Lovenox, dexamethasone, vitamin supplements. White count 9.4. Hemoglobin 13.0. Lymphocytes 0.4. D- dimer 0.80. Sodium 139. Potassium 4.5. Creatinine 0.8. LDH 500. C-reactive protein 3.9. Progress note dated 08/27/2020. 70-year-old male, who is again seen on the general medical floor. He is in room 472. The patient states that he's feeling a bit better today. The patient did receive usual medications including TOCI. Currently, the patient's on a 50% Venturi mask. Saturations are between 90 and 92%. He states that his breathing is improved. He does have a bit of a cough, which is mostly nonproductive. He denies any fever or chills. He denies any chest pain. He is afebrile. Temperature 97.4. Blood pressure is 120/71. Labs today include a d-dimer which is 1.19. LDH is 1242, and C-reactive protein is 26.1. On 08/28/2020 the patient is being seen for a follow-up, and the patient is an acute hypoxic respiratory failure secondary to Covid 19 related pneumonia. The patient received a combination of Decadron, multivitamins and Tocilizumab, and the patient has been weaned down to 50% Venturi mask. The patient is afebrile. No cervical respiratory distress. Bilateral multifocal pulmonary opacities consistent with Covid 19 related pneumonia and this is based on the chest x-rays was on 08/25/2020. Inflammatory markers showed a rise of the LDH of 1242 from yesterday with a CRP of 26. The patient remains on Decadron 6 mg by mouth daily. The patient is also on Lovenox 40 mg subcu for DVT prophylaxis. Clinically the patient is improving. He is currently on a 40% Ventimask. His chest x-rays also showing significant improvement in the perihilar pulmonary infiltrates described earlier than this is based on today's chest x-ray. Inflammatory markers have not been done today. He is coughing some mucus. His pro-calcitonin level at the time of admission was 0.25. He is on no antibiotics for now. On 08/29/2020 the patient is being seen in follow-up regarding Covid 19 related pneumonia with respiratory failure. The patient remains on a 50% Venturi mask. Unfortunately is now much progress. Was attempted to wean down his FiO2 yesterday and he fell because of desaturation. He received a combination of Decadron, and Toci . The patient currently remains on Decadron 6 mg by mouth daily. Is on Lovenox 40 mg by mouth daily. His blood work and inflammatory mar kers show a d-dimer up to 3.86, is elevated from yesterday was 498 with a CRP of 1.3. Rest of the blood work and electrolytes are all within normal limits. They, the patient is feeling better and he seems to be less short of breath. We'll try again to switch him to a nasal cannula. On 08/30/2020 and seeing the patient for a follow-up. The patient is currently feeling better and he is feeling less short of breath. He has been taken off the Venturi mask and he was placed on 5 L about 2 by nasal cannula. No significant chest pain. No cough or sputum production.'s of blood work, the patient's d-dimer is up to 5.64, his LDH level is down to 521 and his CRP is down to 0.4. The patient is currently on Decadron 6 mg by mouth daily. He is also on Lovenox 40 mg subcutaneous daily basis. On patient for a follow-up. For now, the patient is being treated for Covid 19 related pneumonia. The patient is 70 years old. The patient is currently on Decadron 6 mg by mouth daily and Lovenox 40 mg daily. On today's evaluation, the patient is on oxygen and the patient is currently on 6 L and his saturations around 92%. Blood work shows a white cell count of 18,000. The inflammatory markers show a d-dimer of 4.09 which is slightly lower compared to yesterday. LDH is higher at 1519 and a CRP. Despite the rise in the inflammatory markers, the chest x-ray findings are still stable and this shows persistent scattered patchy and this is a new infiltrate throughout the lung fie lds bilaterally. Clinically, the patient is feeling the same and he is feeling improved. Objective - Vital Signs Vital signs: Vital Signs Temp 98.1 F 08/31/20 10:00 Pulse 87 08/31/20 10:00 Resp 20 08/31/20 10:00 BP 117/74 08/31/20 10:00 Pulse Ox 92 L 08/31/20 10:00 Intake & Output 08/30/20 08/31/20 08/31/20 18:59 06:59 18:59 Intake Total 200 200 Balance 200 200 Intake: Oral 200 200 Other: Voiding Method Toilet Toilet # Voids 3 - Exam No acute distress, oriented 3. The patient's using a 6 liters of oxygen by nasal cannula. No conversational dyspnea. HEENT examination is grossly unremarkable. Mucous membranes are moist. No oral lesions. Neck supple. Full range of motion. No adenopathy thyromegaly or neck vein distention. Cardiovascular examination reveals regular rhythm rate. S1-S2 normal. No S3 or S4. No discernible murmur noted. Heart rate 55 bpm. Lungs reveal scattered bilateral rhonchi and crackles. Breath sounds are equal. There are no wheezes. Pulmonary examination is unchanged. Abdomen soft bowel sounds are heard. No masses or tenderness. Extremities are intact. No cyanosis clubbing or edema. Skin is without rash or lesion. Neurologic examination is brief but nonfocal. - Labs CBC & Chem 7: 08/31/20 12:01 08/31/20 12:01 Labs: Abnormal Lab Results - Last 24 Hours (Table) 08/31/20 08/31/20 08/31/20 Range/Units 12:01 12:01 12:01 WBC 18.0 H (3.8-10.6) k/uL Neutrophils # (Manual) 14.70 H (1.3-7.7) k/uL Monocytes # (Manual) 1.08 H (0-1.0) k/uL Metamyelocytes # (Man) 0.72 H (0) k/uL Myelocytes # (Manual) 0.72 H (0) k/uL D-Dimer 4.09 H (<0.60) mg/L FEU Sodium 131 L (137-145) mmol/L BUN 28 H (9-20) mg/dL Lactate Dehydrogenase 1519 H (313-618) U/L Microbiology - Last 24 Hours (Table) 08/29/20 11:00 Gram Stain - Final Sputum Sputum Culture - Final Assessment and Plan Plan: 1 Acute hypoxemic respiratory failure secondary to acute CoVID 19 pneumonia, outside the window for Remdesivir. Did receive tocilizumab, the patient is currently on Decadron for severe hypoxic respiratory failure and currently is in a 6 is of oxygen nasal cannula... The patient is able to maintain a pulse ox above 90%. Likely, the patient is feeling better. He remains on Decadron. His inflammatory markers including LDH and CRP have fluctuating and a chest x- ray findings that are stable. Clinically however, the patient is feeling better. increased lower extremity edema, would benefit from diuretics 3 History of prostate cancer Plan Lasix 40 mg IV x1 Continue with Decadron 6 mg on a daily basis Change to Lovenox dose of 50 mg subcu every 12 hours Titrate FiO2 as tolerated and maintain a saturation above 90% weaned down to 5 L about 2 by nasal cannula Monitors oxygen requirements closely Inflammatory markers improving We'll continue to follow Will repeat chest x-ray in a.m.
--- NOTE | 2020-08-31 15:12 | XR ---
EXAMINATION TYPE: XR chest 1V portable DATE OF EXAM: 08/31/2020 HISTORY: Covid 19 COMPARISON: Same day TECHNIQUE: Single view of the chest is submitted. FINDINGS: Demonstrated are scattered senescent parenchymal change. Again noted is scattered infiltrates throughout both lung logan compatible with Covid 19 pneumonia. The heart is stable. Hilar and mediastinal structures are within normal limits. Degenerative changes are seen of the dorsal spine. IMPRESSION: 1. Again noted is scattered infiltrates throughout both lung logan compatible with Covid 19 pneumon ia.
--- NOTE | 2020-08-31 15:15 | P.PN ---
Subjective Progress Note Date: 08/31/20 70-year-old the male came in with complains of shortness of breath, body aches and the loss of sense of smell and taste. Denied any nausea vomiting diarrhea patient is bit hyponatremic patient is bit lightheaded as well and patient saturations were low presently on 4 L of oxygen was diagnosed with Covid [address] angiogram did not show any PE but infiltrates consistent with Covid. Patient's symptoms started about 2 weeks ago.. 08/25/2020 Patient is seen and evaluated and follow-up and currently requiring oxygen via nonrebreather at 15 L. Patient continues to be extremely dyspneic with minimal exertion. Pulmonary is following. Patient is maintained on dexamethasone, Lovenox, and vitamin supplements and will continue. When talking with the patient he denies any worsening shortness of breath. D-dimer slightly improved at 0.64 today. Sodium is also improved at 136 and potassium is 4.3 and current creatinine is 0.8. Lactate dehydrogenase slightly elevated at 1586 and CRP trending down. We'll discontinue IV fluids and repeat labs. 08/26/2020 patient still remains on 15 L of oxygen although says is doing much better 08/27/2020 Patient remains in 15 L of oxygen patient's LDH is 1242 compared to 500 yesterday C-reactive protein is still high at 26 improved since admission. 08/28/2020 Patient is seen this morning continues to be on venti-mask and continues to be dyspneic with minimal exertion. D-dimer continues to go up and is currently 2.45. Pulmonary following. Lactate dehydrogenase trending down and 498 from 1242 yesterday and CRP is down at 1.3 compared to 26.1 yesterday. Patient remains afebrile. Chest x-ray shows continued peripheral airspace infiltrates bilaterally and demonstrates interval improvement from previous. Will repeat a.m. chest x-ray. 08/29/2020 Patient is seen and evaluated in follow-up this morning continues to be on a Ventimask and states he had some difficulty with increased shortness of breath with minimal exertion this morning although states he feels a little better since then. Pulmonary is following. Discussed with nursing staff and patient about weaning FiO2 as tolerated and will attempt nasal cannula again. Chest x- ray today shows bilateral airspace disease persists with no pneumothorax or pleural effusion noted and consistent with pneumonia. A sputum culture was sent for analysis and pending. Patient is afebrile. Blood count slightly elevated at 11.56 and hemoglobin is stable at 13.0. D-dimer continues to elevate and is currently 3.86. BMP within normal limits with a sodium of 135, potassium is 4.6, current creatinine is 0.8. Will continue to monitor closely and instructed the patient increase activity as tolerated and will repeat a.m. labs along with inflammatory markers. Patient is continued on Lovenox along with dexamethasone and vitamin C and D and zinc supplements. 08/30/2020 Patient is seen this morning with no acute overnight issues. Patient is currently maintained on 5 L of oxygen via nasal cannula and nursing staff working on titrating as tolerated. Patient was 90% on 5 L via nasal cannula. Patient states he's feeling much better today and once again encouraged him to increase activity and sit up in the chair more often and continue with incentive spirometer which will be ordered. Shirin is following and patient is maintained on dexamethasone along with Lovenox and vitamin and zinc supplements and will continue. D-dimer continues to be elevated and is currently 5.64, lactate deh ydrogenase slightly up at 521 and CRP is normal at 0.4. Sputum culture received and results pending. Will continue to monitor closely. 08/31/2020 Patient is seen and evaluated this morning currently sitting up with no acute overnight issues. Patient states he was up and able to wash up in the bathroom and feels much better than yesterday. Patient is maintained on the current liters via nasal cannula at 92% saturation. Patient states that he feels his breathing is improving and denies any worsening shortness of breath. Pulmonary is following closely. Sputum culture remains negative. White blood count elevated at 18.0, hemoglobin is 14.3, d-dimer slightly trending down at 4.09. BMP within normal limits an lactate dehydrogenase has elevated again at 1519 and CRP is slightly up at 6.6. Patient's Lovenox has been adjusted and his 50 mg subcutaneous twice daily along with vitamin C and D supplements, zinc supplements and dexamethasone and will continue. Review of systems: Constitutional: No reports of fatigue, fever, or chills Cardiovascular: No reports of chest pain or palpitations Respiratory:reports reports improvement in shortness of breath and cough GI: No reports of nausea, vomiting, or diarrhea : No reports of dysuria or retention Neurovascular: No reports of weakness or numbness All medications have been reviewed Objective - Vital Signs Vital signs: Vital Signs Temp 97.7 F 08/31/20 05:52 Pulse 55 L 08/31/20 05:52 Resp 19 08/31/20 05:52 BP 121/75 08/31/20 05:52 Pulse Ox 91 L 08/31/20 05:52 Intake & Output 08/30/20 08/31/20 08/31/20 18:59 06:59 18:59 Intake Total 200 Balance 200 Intake: Oral 200 Other: Voiding Method Toilet Toilet # Voids 3 - Exam GENERAL: The patient is alert and oriented x3, not in any acute distress. Obese HEENT: Pupils are round and equally reacting to light. EOMI. No scleral icterus. No conjunctival pallor. Normocephalic, atraumatic. No pharyngeal erythema. No t hyromegaly. CARDIOVASCULAR: S1 and S2 present. No murmurs, rubs, or gallops. PULMONARY: Diminished breath sounds bilaterally with some scattered rhonchi noted ABDOMEN: Soft, nontender, nondistended, normoactive bowel sounds. No palpable organomegaly. MUSCULOSKELETAL: No joint swelling or deformity. EXTREMITIES: No cyanosis, clubbing, or pedal edema. NEUROLOGICAL: Gross neurological examination did not reveal any focal deficits. SKIN: No rashes. - Labs CBC & Chem 7: 08/31/20 12:01 08/31/20 12:01 Labs: Microbiology - Last 24 Hours (Table) 08/29/20 11:00 Gram Stain - Preliminary Sputum Sputum Culture - Preliminary Assessment and Plan Assessment: -Acute hypoxic respiratory failure secondary to covid pneumonia. Patient will be continued on Decadron, Lovenox, zinc, and vitamin supplementation. Currently on 6 L via nasal cannula and discussed with nursing staff about weaning FiO2 as tolerated. -History of prostate cancer in remission -Obesity -GI prophylaxis with Pepcid -DVT prophylaxis Lovenox Plan: Continue with current medications. Continue to wean FiO2 as tolerated. Patient is presently on nasal cannula at 5-6 L. Sputum culture negative. Chest x-ray today shows scattered infiltrates throughout both lung logan compatible with Covid 19 pneumonia. D-dimer is trending down along with inflammatory markers gone up slightly. Pulmonary following. Discussed with the patient along with nursing staff about weaning FiO2 and increasing activity and sitting up in the chair out of the bed. Further recommendations to follow depending on the clinical course of the patient. Patient may require home oxygen secondary to Covid 19 pneumonia upon discharge. Prescription was signed and provided in the event patient will require home oxygen. Prognosis is guarded.
[2020-09-01 06:08] VITALS: TEMP 97.7
[2020-09-01] MEDS: ENOXAPARIN 60 MG/0.6 ML SYRINGE SQ SCH (08:00)
[2020-09-01] MEDS: dexAMETHasone 2 MG TAB PO SCH (08:00)
[2020-09-01] MEDS: CHOLECALCIFEROL 25 MCG (1000 IU) TABLET PO SCH (08:00)
[2020-09-01] MEDS: FAMOTIDINE 20 MG TAB PO SCH (08:01)
[2020-09-01] MEDS: ZINC SULFATE 220 MG CAP PO SCH (08:01)
[2020-09-01] MEDS: ASCORBIC ACID 500 MG TAB PO SCH (08:01)
[2020-09-01] MEDS: DOXAZOSIN 4 MG TAB PO SCH (08:01)
[2020-09-01 10:36] VITALS: BP 110/66; PULSE 71; RESP 18
--- NOTE | 2020-09-01 11:46 | P.PN ---
Subjective Progress Note Date: 09/01/20 The patient is seen today 08/25/2020 in follow-up on the regular medical floor. He is currently sitting up at the bedside. Awake and alert in no acute distress. He is more short of breath today compared to yesterday. Increased cough and congestion. He has required increased oxygen support up to 15 L high flow nasal cannula and a partial rebreather mask to maintain O2 saturations in the 90s. He's been afebrile. Hemodynamically stable. Chest x-ray reveals worsening bilateral multifocal opacities consistent with CoVID 19 infection progression. D-dimer 0.64. LDH elevated at 1586. C-reactive protein 50.9. Sodium 136. Potassium 4.3. Creatinine 0.8. He remains on Lovenox, dexamethasone, vitamin supplements. The patient is seen today 08/26/2020 in follow-up on the regular medical floor. He is currently sitting up in a chair at the bedside. Awake and alert in no acute distress. He is still requiring partial rebreather mask to maintain O2 saturation in the high 80s low 90s. He is continued with a loose nonproductive cough. He did receive tocilizumab. He remains on Lovenox, dexamethasone, vitamin supplements. White count 9.4. Hemoglobin 13.0. Lymphocytes 0.4. D- dimer 0.80. Sodium 139. Potassium 4.5. Creatinine 0.8. LDH 500. C-reactive protein 3.9. Progress note dated 08/27/2020. 70-year-old male, who is again seen on the general medical floor. He is in room 472. The patient states that he's feeling a bit better today. The patient did receive usual medications including TOCI. Currently, the patient's on a 50% Venturi mask. Saturations are between 90 and 92%. He states that his breathing is improved. He does have a bit of a cough, which is mostly nonproductive. He denies any fever or chills. He denies any chest pain. He is afebrile. Temperature 97.4. Blood pressure is 120/71. Labs today include a d-dimer which is 1.19. LDH is 1242, and C-reactive protein is 26.1. On 08/28/2020 the patient is being seen for a follow-up, and the patient is an acute hypoxic respiratory failure secondary to Covid 19 related pneumonia. The patient received a combination of Decadron, multivitamins and Tocilizumab, and the patient has been weaned down to 50% Venturi mask. The patient is afebrile. No cervical respiratory distress. Bilateral multifocal pulmonary opacities consistent with Covid 19 related pneumonia and this is based on the chest x-rays was on 08/25/2020. Inflammatory markers showed a rise of the LDH of 1242 from yesterday with a CRP of 26. The patient remains on Decadron 6 mg by mouth daily. The patient is also on Lovenox 40 mg subcu for DVT prophylaxis. Clinically the patient is improving. He is currently on a 40% Ventimask. His chest x-rays also showing significant improvement in the perihilar pulmonary infiltrates described earlier than this is based on today's chest x-ray. Inflammatory markers have not been done today. He is coughing some mucus. His pro-calcitonin level at the time of admission was 0.25. He is on no antibiotics for now. On 08/29/2020 the patient is being seen in follow-up regarding Covid 19 related pneumonia with respiratory failure. The patient remains on a 50% Venturi mask. Unfortunately is now much progress. Was attempted to wean down his FiO2 yesterday and he fell because of desaturation. He received a combination of Decadron, and Toci . The patient currently remains on Decadron 6 mg by mouth daily. Is on Lovenox 40 mg by mouth daily. His blood work and inflammatory mar kers show a d-dimer up to 3.86, is elevated from yesterday was 498 with a CRP of 1.3. Rest of the blood work and electrolytes are all within normal limits. They, the patient is feeling better and he seems to be less short of breath. We'll try again to switch him to a nasal cannula. On 08/30/2020 and seeing the patient for a follow-up. The patient is currently feeling better and he is feeling less short of breath. He has been taken off the Venturi mask and he was placed on 5 L about 2 by nasal cannula. No significant chest pain. No cough or sputum production.'s of blood work, the patient's d-dimer is up to 5.64, his LDH level is down to 521 and his CRP is down to 0.4. The patient is currently on Decadron 6 mg by mouth daily. He is also on Lovenox 40 mg subcutaneous daily basis. On patient for a follow-up. For now, the patient is being treated for Covid 19 related pneumonia. The patient is 70 years old. The patient is currently on Decadron 6 mg by mouth daily and Lovenox 40 mg daily. On today's evaluation, the patient is on oxygen and the patient is currently on 6 L and his saturations around 92%. Blood work shows a white cell count of 18,000. The inflammatory markers show a d-dimer of 4.09 which is slightly lower compared to yesterday. LDH is higher at 1519 and a CRP. Despite the rise in the inflammatory markers, the chest x-ray findings are still stable and this shows persistent scattered patchy and this is a new infiltrate throughout the lung fie lds bilaterally. Clinically, the patient is feeling the same and he is feeling improved. 09/01/2020, the patient is being seen for follow-up regarding Covid 19 related pneumonia. He remains on Decadron 6 mg and he is also on Lovenox 40 mg subcutaneously on a daily basis. His oxidation continues to improve and today is down to 3 L of oxygen by nasal cannula. His white cell count today is still pending. Yesterday's white cell count was elevated and we thought this was steroid induced. Inflammatory markers showed a d-dimer of 4.09. His LDH was 1529 and his CRP level was 6.6 and these are values from yesterday. Despite this abnormal inflammatory markers, the patient is feeding well and his oxygenation is also improved and is currently down to 3 production by nasal cannula. The chest x-ray from yesterday is showing some residual infiltrates peripherally and bilaterally consistent with covid 19 related pneumonia. Objective - Vital Signs Vital signs: Vital Signs Temp 97.7 F 09/01/20 10:00 Pulse 71 09/01/20 10:00 Resp 18 09/01/20 10:00 BP 110/66 09/01/20 10:00 Pulse Ox 91 L 09/01/20 10:00 Intake & Output 08/31/20 09/01/20 09/01/20 18:59 06:59 18:59 Intake Total 200 Output Total 500 Balance -300 Intake: Oral 200 Output: Urine 500 Other: Voiding Method Toilet # Voids 2 - Exam No acute distress, oriented 3. The patient's using a 3 liters of oxygen by nasal cannula. No conversational dyspnea. HEENT examination is grossly unremarkable. Mucous membranes are moist. No oral lesions. Neck supple. Full range of motion. No adenopathy thyromegaly or neck vein distention. Cardiovascular examination reveals regular rhythm rate. S1-S2 normal. No S3 or S4. No discernible murmur noted. Heart rate 55 bpm. Lungs reveal scattered bilateral rhonchi and crackles. Breath sounds are equal. There are no wheezes. Pulmonary examination is unchanged. Abdomen soft bowel sounds are heard. No masses or tenderness. Extremities are intact. No cyanosis clubbing or edema. Skin is without rash or lesion. Neurologic examination is brief but nonfocal. - Labs CBC & Chem 7: 08/31/20 12:01 08/31/20 12:01 Labs: Abnormal Lab Results - Last 24 Hours (Table) 08/31/20 08/31/20 08/31/20 Range/Units 12:01 12:01 12:01 WBC 18.0 H (3.8-10.6) k/uL Neutrophils # (Manual) 14.70 H (1.3-7.7) k/uL Monocytes # (Manual) 1.08 H (0-1.0) k/uL Metamyelocytes # (Man) 0.72 H (0) k/uL Myelocytes # (Manual) 0.72 H (0) k/uL D-Dimer 4.09 H (<0.60) mg/L FEU Sodium 131 L (137-145) mmol/L BUN 28 H (9-20) mg/dL Lactate Dehydrogenase 1519 H (313-618) U/L Microbiology - Last 24 Hours (Table) 08/29/20 11:00 Gram Stain - Final Sputum Sputum Culture - Final Assessment and Plan Plan: 1 Acute hypoxemic respiratory failure secondary to acute CoVID 19 pneumonia, outside the window for Remdesivir. Did receive tocilizumab, the patient is currently on Decadron for severe hypoxic respiratory failure and currently is in a 3 is of oxygen nasal cannula... The patient is able to maintain a pulse ox above 90%. Likely, the patient is feeling better. He remains on Decadron. His inflammatory markers including LDH and CRP have fluctuating and a chest x- ray findings that are stable. Clinically however, the patient is feeling better. Clinically the patient is improving despite some elevation in the LDH and the d-dimer. increased lower extremity edema, would benefit from diuretics 3 History of prostate cancer Plan Continue with Decadron 6 mg on a daily basis, completed total of 7 day course consider discharging this patient home today on oxygen at 3 L per minute nasal cannula and a home oxygen concentrator will be ordered Xarelto 10 mg for DVT prophylaxis for the next 30 days Titrate FiO2 as tolerated and maintain a saturation above 90% Agree on discharge today to be followed up on outpatient basis in 2-3 weeks time.
--- NOTE | 2020-09-01 14:38 | P.DS ---
Providers Date of admission: 08/23/20 22:53 Expected date of discharge: 09/01/20 Attending physician: Live Patton Consults: 08/23/20 23:23 Consult Physician Routine Consulting Provider: Julito Santacruz Reason/Comments: hypoxic covid pneumonia Do you want consulting provider notified?: Yes Primary care physician: Stated None Hospital Course: Final diagnosis -Acute hypoxic respiratory failure secondary to covid pneumonia -History of prostate cancer in remission -Obesity -GI prophylaxis -DVT prophylaxis Discharge disposition Patient is being discharged in a stable condition with guarded prognosis to home and will continue with home care in the outpatient setting. Patient will follow-up with Dr. Eagle in the outpatient setting upon discharge. Patient also instructed to follow-up with pulmonary next week. Patient will be discharged home on steroids along with Xarelto and oxygen secondary to Covid 19. Total time taken is greater than 35 minutes. Hospital course This is a 70-year-old male who recently was admitted with shortness of breath, body aches, and lost the sense of smell and taste and was found to be Covid 19 positive and requiring oxygen. Patient underwent CT angiogram which was negative for PE and was maintained on oxygen. Patient continued to require more oxygen and had been placed on nonrebreather and Ventimask. Patient has titrated as tolerated and is currently on 3 L of oxygen via nasal cannula at 93% oxygenation. Patient will require home oxygen and case management making arrangements. Maintained on dexamethasone and will continue to complete the course along with vitamin C and zinc supplements and patient will be started on Xarelto and will follow up with pulmonary in the outpatient setting next week. Patient clinically looks much better. Currently no reports of chest pain, worsened shortness of breath, or palpitations. Patient is afebrile. No reports of nausea or vomiting and patient is tolerating diet. Patient will be discharged home today. On exam vital signs are stable. Cardio S1, S2 are muffled. Respiratory system shows diminished breath sounds at the bases with no wheezing or rhonchi noted. Abdomen is soft and nontender. Nervous system shows no focal deficits. Please refer to medication reconciliation sheet for a list of medications. Patient Condition at Discharge: Stable Plan - Discharge Summary New Discharge Prescriptions: New Dexamethasone [Decadron] 6 mg PO DAILY 7 Days #7 tablet Rivaroxaban [Xarelto] 10 mg PO DAILY 30 Days #30 tab Magnesium Hydroxide [Milk of Magnesia Concentrate] 2,400 mg PO BID PRN #120 ml PRN Reason: Constipation Zinc Sulfate [Orazinc] 220 mg PO DAILY 30 Days #30 cap Sennosides [Senokot] 8.6 mg PO DAILY PRN #20 tablet PRN Reason: Constipation Acetaminophen Tab [Tylenol] 650 mg PO Q6H PRN #30 tab PRN Reason: Fever Ascorbic Acid [Vitamin C] 500 mg PO BID 30 Days #60 tab Cholecalciferol [Vitamin D3 (25 Mcg = 1000 Iu)] 100 mcg PO DAILY 30 Days #30 tablet Continue Doxazosin Mesylate [Cardura] 8 mg PO DAILY Discharge Medication List Doxazosin Mesylate [Cardura] 8 mg PO DAILY 09/08/18 [History] Acetaminophen Tab [Tylenol] 650 mg PO Q6H PRN #30 tab 09/01/20 [Rx] Ascorbic Acid [Vitamin C] 500 mg PO BID 30 Days #60 tab 09/01/20 [Rx] Cholecalciferol [Vitamin D3 (25 Mcg = 1000 Iu)] 100 mcg PO DAILY 30 Days #30 tablet 09/01/20 [Rx] Dexamethasone [Decadron] 6 mg PO DAILY 7 Days #7 tablet 09/01/20 [Rx] Magnesium Hydroxide [Milk of Magnesia Concentrate] 2,400 mg PO BID PRN #120 ml 09/01/20 [Rx] Rivaroxaban [Xarelto] 10 mg PO DAILY 30 Days #30 tab 09/01/20 [Rx] Sennosides [Senokot] 8.6 mg PO DAILY PRN #20 tablet 09/01/20 [Rx] Zinc Sulfate [Orazinc] 220 mg PO DAILY 30 Days #30 cap 09/01/20 [Rx] Follow up Appointment(s)/Referral(s): Jermain Eagle MD [REFERRING] - 1 Week (Please call office when you are discharged to set up televisit. Thank you.) [facility] [NON-STAFF] - As Needed (oxygen ) [facility] [NON-STAFF] - As Needed Geovanny Kruger MD [STAFF PHYSICIAN] - 09/05/20 2:45 pm Activity/Diet/Wound Care/Special Instructions: Activity Limited until follow-up Continue oxygen and obtain a pulse oximeter to monitor oxygen saturation Continue steroids until finished Continue vitamin supplements Continue current diet Follow-up with pulmonary in the outpatient setting Follow-up with primary care provider upon discharge Encourage fluids and rest Monitor for fevers and treat with Tylenol Continue to isolate, frequent handwashing, mask wearing, social distancing Discharge Disposition: HOME WITH HOME HEALTH SERVICES
== END 2020-09-01 18:27 | disposition home health service (06) | DRG 177 ==
LOC: EC 20:51 → 3SCARD 22:53 → 4SSUR 08-24 21:15
PROVIDERS: ADMIT Hospitalist; ATTEND Hospitalist
DX: U07.1 COVID-19 (principal); J12.82 Pneumonia due to coronavirus disease 2019; J96.01 Acute respiratory failure with hypoxia; E87.1 Hypo-osmolality and hyponatremia; E66.9 Obesity, unspecified; K59.00 Constipation, unspecified; Z68.34 Body mass index [BMI] 34.0-34.9, adult; Z71.3 Dietary counseling and surveillance; Z79.899 Other long term (current) drug therapy; Z85.46 Personal history of malignant neoplasm of prostate; Z90.49 Acquired absence of other specified parts of digestive tract; Z98.890 Other specified postprocedural states
CPT/HCPCS: 36415; 71045; 71275; 80048; 80053; 82728; 83605; 83615; 83735; 84145; 85025; 85379; 85610; 85730; 86140; 87040; 87070; 87205; 87635; 93005; 94760; 99285